=== PATIENT | female | born 1980 | race Caucasian/White ===

== ENCOUNTER → 2016-10-31 | Outpatient (CLI) | payer BC ==
[~2016-10-31] MED LIST: ACET325T96 PO; LORA-741 PO; MULT-506 PO; SERT50TA PO
[2016-10-31 10:10] LABS: PROLACTIN 8.14 ng/mL
== END | disposition home or self-care (01) ==
LOC: C.LAB 06:18
PROVIDERS: ATTEND Obstetrics & Gynecology
DX: N92.5 Other specified irregular menstruation (principal); N92.0 Excessive and frequent menstruation with regular cycle

== ENCOUNTER → 2016-11-21 | Outpatient (CLI) | payer BC ==
[~2016-11-21] MED LIST changes: -ACET325T96 PO; -SERT50TA PO
[2016-11-21 09:41] LABS: PREG INTERNAL NEGATIVE QC NEG CLEAR BACKGROUND; PREG INTERNAL POSITIVE QC POS CONTROL LINE
== END | disposition home or self-care (01) ==
LOC: C.LAB 07:17
PROVIDERS: ATTEND Obstetrics & Gynecology
DX: Z01.818 Encounter for other preprocedural examination (principal)

== ENCOUNTER → 2016-11-27 | Day surgery (SDC) | payer BC ==
[2016-11-20 11:23] VITALS: Ht 149.9 cm; Wt 54.5 kg
--- NOTE | 2016-11-26 11:40 | History and Physical: Surg Cnt ---
History & Physical Date Nov 26, 2016. Chief Complaint heavy vaginal bleeding with clotting History of Present Illness The patient is a 36 year old female with complaints of Past Medical/Surgical History Patient has heavy vaginal bleeding with clotting for over 1 year getting progressively worse. Patient is unable to leave the house for over 4 days a month due to soaking through a pad and a Tampax in under 1 hour. Symptoms have been unresponsive to conservative treatment with oral medications. Risks and benefits of the procedure have been discussed with the patient. Additional History Hepatic Disease: No Endocrine Disorder: No Kidney Disease: No Hypertension: No Heart Disease: No Bleeding Tendencies: No Infectious Diseases: No Allergies Coded Allergies: Penicillins (Verified Allergy, Intermediate, rash, 11/20/16) Latex1 -Allergic Contact Dermititis (Verified Allergy, Mild, RASH, 11/20/16 ) PT REPORTS ITCHING WHEN EXPOSED TO LATEX. Home Medications Scheduled Multivitamin (Multivitamin), 1 TAB PO QAM Scheduled PRN Lorazepam (Ativan), 0.5 MG PO TID PRN for anxiety Physical Examination Skin: warm/dry Eyes: normal inspection, EOMI, sclerae normal ENT: normal ENT inspection, pharynx normal Head: normocephalic, atraumatic Neck: supple, no adenopathy, trachea midline Respiratory/Chest: lungs clear, normal breath sounds, no respiratory distress Cardiovascular: regular rate, rhythm, no edema, no murmur Abdomen / GI: normal bowel sounds, non tender Back: normal inspection Extremities: normal inspection, normal range of motion Neurologic/Psych: no motor/sensory deficits, alert, normal reflexes, oriented x 3 Addiitonal Comments: Transvaginal ultrasound done on 11/04/16 . Thickened endometrial stripe present. Diagnosis Hypermenorrhea Plan of Treatment Dilatation of cervix and curettage of endometrial cavity. Hysteroscopy with endometrial ablation.
[~2016-11-27] VITALS: Ht 149.9 cm; Wt 54.5 kg
[~2016-11-27] MED LIST changes: +ATROPINE SULFATE 0.1 MG/ML 5ML SYR IV PRN; +DEXAMETHASONE SOD INJ 4 MG/ML VIAL ONE; +EpHEDrine SULFATE INJ 50 MG/ML AMP IV PRN; +FENTANYL CITRATE INJ 50 MCG/1 ML 2 ML VIAL IV PRN; +FENTANYL CITRATE INJ 50 MCG/1 ML 2 ML VIAL ONE; +HYDROCODONE/ACETAMOPHEN 5/325MG TAB PO PRN; +IBUPROFEN 600 MG TAB PO PRN; +KETOROLAC TROMETHAMINE 30 MG/ML VIAL IV. PRN; +KETOROLAC TROMETHAMINE 30 MG/ML VIAL ONE; +LACTATED RINGER'S 1000ML 1,000 ML IV SCH; +LIDOCAINE HCL 2% 2 ML VIAL (20MG/ML) ONE; +MIDAZOLAM HCL 1 MG/ML 2ML VIAL ONE; +ONDANSETRON INJ 2 MG/ML 2 ML VIAL IV PRN; +ONDANSETRON INJ 2 MG/ML 2 ML VIAL ONE; +OXYCODONE/ACETAMINOPHEN 5-325 TAB PO PRN; +PROMETHAZINE HCL INJ 6.25 MG in SODIUM CHLORIDE 0.9% 50ML 50 ML IV PRN; +PROPOFOL IV EMULSION 10 MG/ML 20 ML VIAL IV ONE; +SODIUM CHLORIDE 0.9% 1000ML 1,000 ML IV SCH
--- NOTE | 2016-11-27 08:08 | History & Physical Bridge Note ---
H&P Re-Evaluation Bridge Note: I have examined the patient, reviewed the History & Physical and in the interval since the performance of the History & Physical I have noted the following changes of clinical significance: No changes noted
--- NOTE | 2016-11-27 08:54 | [facility] Post Operative Brief Note ---
Immediate Operative Summary Operative Date Nov 27, 2016. Pre-Operative Diagnosis Hypermenorrhea, Dysmenorrhea Post-Operative Diagnosis Same Procedure(s) Performed Dilatation And Curettage, Hysteroscopy, Endometrial Ablation with Novasure Surgeon Dr Rubalcava Sample Driller Surgeon(s) None Estimated Blood Loss 5ml Findings uterus sounded to 8.25cm first degree uterine prolapse Specimens A: Endometrial Currettings Complication(s) None Disposition Recovery Room / PACU
--- NOTE | 2016-11-27 08:56 | Discharge Instructions-SurgCtr ---
Discharge Instructions Date of Service Nov 27, 2016. Visit Reason for Visit: Hypermenorrhea, Dysmenorrhea Discharge Discharge Diagnosis / Problem: uterus sounded to 8.25 cm Discharge Goals Goal(s): Improve function, Therapeutic intervention Activity Recommendations Activity Limitations: as noted below Anesthesia . Post Anesthesia Instructions: If you have had General Anesthesia or IV Sedation: * Do not drive today. * Resume driving when surgeon permits. * Do not make important decisions or sign legal documents today. * Call surgeon for: 1. Temperature elevations greater than 101 degrees F. 2. Uncontrollable pain. 3. Excessive bleeding. 4. Persistent nausea and vomiting. 5. Medication intolerance (nausea, vomiting or rash). * For nausea and vomiting use only clear liquids such as: tea, soda, bouillon until nausea subsides, then gradually increase diet as tolerated. * If you have any concerns or questions, call your surgeon's office. If physician is unavailable and it is an emergency, call 911 or go to the nearest emergency room. . Instructions / Follow-Up Instructions / Follow-Up ACTIVITY RECOMMENDATIONS: * Avoid tampons, douching, hot tubs, pools, and intercourse until bleeding has stopped. * May shower as usual. * No strenuous activity for 24-48 hours. After 24-48 hours, you may do anything you feel like doing (driving and sports are okay). SPECIAL CARE INSTRUCTIONS: Special Diet: * Mild nausea may occur in the immediate post-operative period. * Take clear liquids such as tea, cola or bouillon until all nausea has subsided; you may then resume your normal diet. Special Care: * Light bleeding and vaginal spotting can last from a few days to 3-4 weeks. Call your doctor if bleeding becomes heavier than the heaviest part of your period. * Check your temperature twice a day for one week. If it goes above 100.4 degrees Fahrenheit (38.0 Celsius), notify your doctor. * Call your doctor's office for an appointment for 6 weeks after your surgery. FOLLOW-UP VISIT: Call your doctor's office for an appointment for 6 weeks after your surgery. Diet Recommendations Home Diet: resume previous diet Procedures Procedures Performed: Dilatation And Curettage, Hysteroscopy, Endometrial Ablation with Novasure Pending Studies Studies pending at discharge: no Medical Emergencies . Who to Call and When: Medical Emergencies: If at any time you feel your situation is an emergency, please call 911 immediately. . Non-Emergent Contact Non-Emergency issues call your: Ship Surveyor Call Non-Emergent contact if: temperature is above 100.5 . . "Provider Documentation" section prepared by Musa Rubalcava. .
--- NOTE | 2016-11-27 09:05 | [facility] Operative Report ---
Operative Report Operative Date Nov 27, 2016. Pre-Operative Diagnosis Hypermenorrhea, Dysmenorrhea Post-Operative Diagnosis Same Procedure(s) Performed Dilatation And Curettage, Hysteroscopy, Endometrial Ablation with Novasure Surgeon Dr Rubalcava Oil Pit Attendant Surgeon(s) None Estimated Blood Loss 5ml Findings Hysteroscopic evaluation of the uterine cavity revealed a normal uterus and normal tubal ostia Specimens A: Endometrial Currettings Complication(s) None Disposition Recovery Room / PACU Description of Procedure Stressors but brought to the OR correctly identified by armband conversation patient placed on the OR table. Perineum and vagina were painted with Betadine paint and draped usual sterile fashion catheters used to empty the bladder careful pelvic exam revealed a mid to anteverted uterus no adnexal masses appreciated weighted speculum was placed in posterior vagina and anterior lip cervix rest was single-tooth tenaculum uterus was sounded to 8-1/4 cm cervix was dilated with graduated dilators hysteroscope using normal saline for distention medium was placed into the uterine cavity both tubal ostia were visualized and the length of the cervix was calculated following this thorough and systematic curettage of the entire endometrial cavity was performed this was productive of a moderate amount of normal-appearing tissue and then a NovaSure ablation device was placed in uterine cavity and cervical length was set at 4-1/4 cm the device was opened to 3.5 cm with a integrity test with CO2 was done then the a power was turned on and a power was 77 W and a time 1 minute 51 seconds following a weight of about 60 seconds the NovaSure device was removed hysteroscope was reinserted and uterine cavity we had a nice burn of the entire endometrial cavity photographs were taken and showed to remove patient our procedure well left the OR in good condition. I attest to the content of the Intraoperative Record and any orders documented therein. Any exceptions are noted below.
[2016-11-27 09:29] VITALS: TEMP 36.2
[2016-11-27 09:58] VITALS: BP 128/80; PULSE 63; O2SAT 100
--- NOTE | 2016-11-27 10:01 | Anesthesiology Progress Note ---
Anesthesia Post Op Note Date & Time Nov 27, 2016 at 10:01 Vital Signs Pain Intensity: 6 Vital Signs Past 12 Hours Date Time Temp Pulse Resp B/P (MAP) Pulse Ox O2 Delivery O2 Flow Rate FiO2 11/27/16 09:58 63 18 128/80 (96) 100 Room Air 11/27/16 09:29 36.2 60 20 125/80 (95) 100 Room Air 11/27/16 09:24 36.5 11/27/16 09:22 61 13 100 11/27/16 09:22 61 13 11/27/16 09:21 133/91 (112) 11/27/16 09:17 71 18 128/83 (93) 100 11/27/16 09:17 72 18 11/27/16 09:12 82 11 99 11/27/16 09:12 82 11 11/27/16 09:07 12 11/27/16 09:07 82 12 11/27/16 09:06 116/84 (96) 11/27/16 09:05 Room Air 11/27/16 09:02 83 15 126/79 (97) 100 11/27/16 09:02 81 15 11/27/16 08:58 109/76 (83) 11/27/16 08:57 79 15 11/27/16 08:57 15 11/27/16 08:54 36.4 79 16 109/76 98 Diffusion Mask 5 11/27/16 07:13 36.5 75 16 124/86 (99) 100 Room Air Notes Mental Status: alert / awake / arousable, participated in evaluation Pt Amnestic to Procedure: Yes Nausea / Vomiting: adequately controlled Pain: adequately controlled Airway Patency, RR, SpO2: stable & adequate BP & HR: stable & adequate Hydration State: stable & adequate Anesthetic Complications: no major complications apparent
== END | disposition home or self-care (01) ==
LOC: X.SURG 07:03
PROVIDERS: ATTEND Obstetrics & Gynecology
DX: N92.0 Excessive and frequent menstruation with regular cycle (principal); N94.6 Dysmenorrhea, unspecified

== ENCOUNTER 2017-09-27 21:44 | Emergency (ER) | payer BC ==
[~2017-09-27] VITALS: Ht 149.9 cm; Wt 50.3 kg
[~2017-09-27 21:44] MED LIST changes: -ATROPINE SULFATE 0.1 MG/ML 5ML SYR IV PRN; -DEXAMETHASONE SOD INJ 4 MG/ML VIAL ONE; -EpHEDrine SULFATE INJ 50 MG/ML AMP IV PRN; -FENTANYL CITRATE INJ 50 MCG/1 ML 2 ML VIAL IV PRN; -FENTANYL CITRATE INJ 50 MCG/1 ML 2 ML VIAL ONE; -HYDROCODONE/ACETAMOPHEN 5/325MG TAB PO PRN; -IBUPROFEN 600 MG TAB PO PRN; -KETOROLAC TROMETHAMINE 30 MG/ML VIAL IV. PRN; -KETOROLAC TROMETHAMINE 30 MG/ML VIAL ONE; -LACTATED RINGER'S 1000ML 1,000 ML IV SCH; -LIDOCAINE HCL 2% 2 ML VIAL (20MG/ML) ONE; -MIDAZOLAM HCL 1 MG/ML 2ML VIAL ONE; -ONDANSETRON INJ 2 MG/ML 2 ML VIAL IV PRN; -ONDANSETRON INJ 2 MG/ML 2 ML VIAL ONE; -OXYCODONE/ACETAMINOPHEN 5-325 TAB PO PRN; -PROMETHAZINE HCL INJ 6.25 MG in SODIUM CHLORIDE 0.9% 50ML 50 ML IV PRN; -PROPOFOL IV EMULSION 10 MG/ML 20 ML VIAL IV ONE; -SODIUM CHLORIDE 0.9% 1000ML 1,000 ML IV SCH
[2017-09-27 21:49] VITALS: TEMP 36.7; Ht 149.9 cm; Wt 50.3 kg
[2017-09-27] MEDS ORDERED: SODIUM CHLORIDE 0.9% 1000ML 1,000 ML IV STA (22:05)
[2017-09-27] MEDS ORDERED: LORAZEPAM 2 MG/ML 1 ML VIAL IV STA (22:05)
[2017-09-27 22:16] LABS: BASO % 0.2 %; BASO ABS # 0.02 K/uL (0-0.2); EOS % 0.7 %; EOS ABS # 0.07 K/uL (0-0.5); HEMATOCRIT 40.3 % (37-47); HEMOGLOBIN 14.7 g/dL (12.0-16.0); IG# 0.02 K/uL (0.00-0.02); LYMPH ABS # 3.19 K/uL (1.2-3.4); MEAN CORPUSCULAR HEMOGLOBIN 31.7 pg (25-34); MEAN CORPUSCULAR HGB CONC 36.5 g/dl (32-36); MEAN PLATELET VOLUME 10.4 fL (7.4-10.4); MONO % 6.4 %; MONO ABS # 0.64 K/uL (0.11-0.59); NEUT % 60.5 %; NEUT ABS # 6.03 K/uL (1.4-6.5); PLATELET COUNT 199 K/uL (130-400); RED CELL DISTRIBUTION WIDTH CV 12.8 % (11.5-14.5); RED CELL DISTRIBUTION WIDTH SD 40.4 fL (36.4-46.3); WHITE BLOOD COUNT 9.97 K/uL (4.8-10.8)
--- NOTE | 2017-09-27 22:20 | DIAGNOSTIC IMAGING REPORT ---
CHEST ONE VIEW PORTABLE HISTORY: 36 years-old Female CHEST PAIN acute atypical chest pain COMPARISON: Chest radiographs 02/05/2016 TECHNIQUE: Portable AP view of the chest FINDINGS: Cardiomediastinal and hilar silhouettes are within normal limits. There is no pneumothorax, pleural effusion, focal airspace consolidation or overt pulmonary edema. The bones of the chest appear grossly intact. IMPRESSION: No acute process. The above report was generated using voice recognition software. It may contain grammatical, syntax or spelling errors. Electronically signed by: Babatunde Steve M.D. 09/27/2017 10:19 PM Dictated Date/Time: 09/27/2017 10:18 PM
[2017-09-27] MEDS ORDERED: BSP/10 PO (22:36)
[2017-09-27] MEDS ORDERED: ATV5X PO (22:36)
[2017-09-27 22:44] LABS: ALBUMIN 4.4 gm/dl (3.4-5.0); CALCIUM 9.4 mg/dl (8.5-10.1); CREATININE 0.94 mg/dl (0.60-1.20); POTASSIUM 2.9 mmol/L (3.5-5.1)
[2017-09-27 22:45] VITALS: O2SAT 100
[2017-09-27] MEDS ORDERED: POTASSIUM CHLORIDE 10 MEQ TABCR PO STA (22:52)
[2017-09-27 22:55] LABS: TOTAL PROTEIN 8.4 gm/dl (6.4-8.2)
[2017-09-27] MEDS ORDERED: MEDMARIJ INH (22:55)
--- NOTE | 2017-09-27 23:10 | EMERGENCY ROOM VISIT NOTE ---
History First contact with patient: 21:49 Chief Complaint: OTHER COMPLAINT Stated Complaint: IRREGULAR HEARTBEAT, SHAKING History of Present Illness The patient is a 36 year old female who presents to the Emergency Room with complaints of feeling shaky coughing and anxious after taking a bigger hit the normal off her medical marijuana. Patient states she takes normally 2-3 hits off her medical marijuana a day. Patient states she took a bigger had a normal today and now feels anxious and shaky. Patient denies chest pain, dyspnea, fever, chills, productive cough, abdominal pain, other drug use. Patient is requesting something to drink. Review of Systems An 10 system review of systems was completed with positives and pertinent negatives listed in the HPI. Past Medical/Surgical History Generalized anxiety, depression, PTSD Family History Heart disease Stroke Social History Smoking Status: Never Smoker Alcohol Use: none Drug Use: marijuana Marital Status: Occupation Status: employed Current/Historical Medications Scheduled Buspirone HCl (Buspirone HCl), 10 MG PO BID Lorazepam (Lorazepam), 0.5 MG PO NEEDED Marijuana, Home Medication (Marijuana, Home Medication), 1 DOSE INH DIRECTED Physical Exam Vital Signs Date Time Temp Pulse Resp B/P (MAP) Pulse Ox O2 Delivery O2 Flow Rate FiO2 09/27/17 22:45 100 Room Air 09/27/17 22:13 100 Room Air 09/27/17 21:53 109 09/27/17 21:49 36.7 118 14 162/95 100 Room Air Physical Exam VITALS: Vitals are noted on the nurse's note and reviewed by myself. Vital signs mildly tachycardic. GENERAL: Anxious appearing female begging for something to drink, nondiaphoretic , well-developed well-nourished. SKIN: The skin was without rashes, erythema, edema, or bruising. There is no tenting of the skin. Capillary reflex less than 2 seconds. HEAD: Normocephalic atraumatic. EARS: External auditory canals clear, tympanic membranes pearly bermudez without erythema or effusion bilaterally. EYES: Pupils equal round and reactive to light and accommodation. Conjunctivae without injection, sclerae without icterus. Extraocular movements intact. NOSE: Patent, turbinates without inflammation or discharge. MOUTH: Mucous membranes moist. Pharynx without erythema or exudate. Uvula midline. Airway patent. Tongue does not deviate. NECK: Supple without nuchal rigidity. No lymphadenopathy. No thyromegaly. Cervical spine is nontender. No JVD. HEART: Regular rate and rhythm without murmurs gallops or rubs. LUNGS: Clear to auscultation bilaterally without wheezes, rales or rhonchi. No retractions or accessory muscle use. ABDOMEN: Positive bowel sounds x 4. Normal tympanic percussion. Soft, nontender, without masses or organomegaly. Escobar sign negative. No guarding or rebound tenderness. No CVA tenderness MUSCULOSKELETAL: No muscle atrophy, erythema, or edema noted. NEURO: Patient was alert and oriented to person place and time. Normal sensation to light and sharp touch. No focal neurological deficits. Medical Decision & Procedures Laboratory Results 09/27/17 21:50 Red Blood Count 4.63, Mean Corpuscular Volume 87.0, Mean Corpuscular Hemoglobin 31.7, Mean Corpuscular Hemoglobin Concent 36.5, Mean Platelet Volume 10.4, Neutrophils (%) (Auto) 60.5, Lymphocytes (%) (Auto) 32.0, Monocytes (%) (Auto) 6.4, Eosinophils (%) (Auto) 0.7, Basophils (%) (Auto) 0.2, Neutrophils # (Auto) 6.03, Lymphocytes # (Auto) 3.19, Monocytes # (Auto) 0.64, Eosinophils # (Auto) 0.07, Basophils # (Auto) 0.02 09/27/17 21:50 Test 09/27/17 21:50 White Blood Count 9.97 K/uL (4.8-10.8) Red Blood Count 4.63 M/uL (4.2-5.4) Hemoglobin 14.7 g/dL (12.0-16.0) Hematocrit 40.3 % (37-47) Mean Corpuscular Volume 87.0 fL (80-100) Mean Corpuscular Hemoglobin 31.7 pg (25-34) Mean Corpuscular Hemoglobin Concent 36.5 g/dl (32-36) Platelet Count 199 K/uL (130-400) Mean Platelet Volume 10.4 fL (7.4-10.4) Neutrophils (%) (Auto) 60.5 % Lymphocytes (%) (Auto) 32.0 % Monocytes (%) (Auto) 6.4 % Eosinophils (%) (Auto) 0.7 % Basophils (%) (Auto) 0.2 % Neutrophils # (Auto) 6.03 K/uL (1.4-6.5) Lymphocytes # (Auto) 3.19 K/uL (1.2-3.4) Monocytes # (Auto) 0.64 K/uL (0.11-0.59) Eosinophils # (Auto) 0.07 K/uL (0-0.5) Basophils # (Auto) 0.02 K/uL (0-0.2) RDW Standard Deviation 40.4 fL (36.4-46.3) RDW Coefficient of Variation 12.8 % (11.5-14.5) Immature Granulocyte % (Auto) 0.2 % Immature Granulocyte # (Auto) 0.02 K/uL (0.00-0.02) Anion Gap 12.0 mmol/L (3-11) Est Creatinine Clear Calc Drug Dose 55.9 ml/min Estimated GFR () 89.8 Estimated GFR (Non- 77.5 BUN/Creatinine Ratio 20.2 (10-20) Calcium Level 9.4 mg/dl (8.5-10.1) Magnesium Level 1.9 mg/dl (1.8-2.4) Total Bilirubin 0.5 mg/dl (0.2-1) Direct Bilirubin 0.2 mg/dl (0-0.2) Aspartate Amino Transf (AST/SGOT) 20 U/L (15-37) Alanine Aminotransferase (ALT/SGPT) 23 U/L (12-78) Alkaline Phosphatase 76 U/L (45-117) Total Protein 8.4 gm/dl (6.4-8.2) Albumin 4.4 gm/dl (3.4-5.0) Thyroid Stimulating Hormone (TSH) 3.180 uIu/ml (0.300-4.500) Human Chorionic Gonadotropin, Qual NEG (NEG) Medications Administered Medications (Trade) Dose Ordered Sig/Geovanny Route Start Time Stop Time Status Last Admin Dose Admin Lorazepam (Ativan Inj) 1 mg NOW STAT IV 09/27/17 22:05 09/27/17 22:06 DC 09/27/17 22:27 1 MG Sodium Chloride 1,000 ml @ 999 mls/hr Q1H1M STAT IV 09/27/17 22:05 09/27/17 23:05 DC 09/27/17 22:27 999 MLS/HR ED Course Prior records/ancillary studies reviewed and summarized above. Nursing notes reviewed. Additional history obtained from family The patient's history was concerning for feeling anxious nervous and tingling after inhaling more than normal amounts of marijuana Differential diagnosis: Etiologies such as side effect of marijuana use, metabolic, infection, hypo/ hyperglycemia, electrolyte abnormalities, cardiac sources, intracerebral event, toxicologic, neurologic, as well as others were entertained. Physical examination: As above. ER treatment provided: IV Lock IV fluids, Ativan On reassessment the patient felt better. Diagnostics interpretation by me: ECG: Normal sinus, normal intervals, no acute ST-T wave changes. Impression normal sinus rhythm interpreted by myself The labs revealed hypokalemia and this is replaced orally. Negative hCG Imaging studies: Chest x-ray with no acute consolidation, pneumothorax free of my interpretation Exam and history seem consistent with anxiety side effect of marijuana and low potassium. Patient felt better after being medicated as above. Patient states she has been using medical marijuana for the past few months for her anxiety. Patient was well-appearing. She was neurovascularly neurologically intact. She was anxious appearing but felt better after the Ativan. She is advised to rest, decrease stress, regular exercise and to take her medications as directed. She is advised follow-up with family care in a few days or here in the ER sooner for chest pain, difficulty breathing, worsening signs or symptoms or as needed. By the evaluation outlined above emergent etiologies such as infection, cardiac sources, intracerebral event, neurologic, abnormalities blood glucose, metabolic, as well as others were deemed relatively unlikely. The pt informed about the findings as listed above. All questions were answered and pleased with the treatment. Return instructions were outlined and the patient was discharged in stable condition. Referral: The patient was referred back to primary care physician for follow-up in 2 to 3 days for a recheck of the current condition. Case reviewed with my attending The chart was completed utilizing [employer] voice recognition software. Grammatical errors, random word insertions, pronoun errors, and incomplete sentences are an occassional consequence of this system due to software limitations, ambient noise, and hardware issues. Any formal questions or concerns about the content, text, or information contained within the body of this dictation should be directly addressed to the physician bilingual medical assistant for clarification. Medical Decision as above Medication Reconcilliation Current Medication List: was personally reviewed by me Blood Pressure Screening Patient's blood pressure: Elevated blood pressure Blood pressure disposition: Elevated BP felt to be situational Impression Primary Impression: Anxiety Additional Impressions: Marijuana side effect Hypokalemia Departure Information Dispostion Home / Self-Care Condition GOOD Referrals Tee Lundberg M.D. (PCP) Patient Instructions My [facility] Additional Instructions DO NOT drive, drink alcohol, operate machinery, or perform dangerous activities today. You were given medications in the ER that can affect your ability to safely function or operate a vehicle. Decrease stress. Recommend yoga and/or Pilates for stress relief. Recommend not over inhaling your medical marijuana. Rest and drink plenty of fluids as tolerated. Continue current medications. Return to the ER immediately for worsening or persistent shakiness, vomiting, fevers, chest pains, difficulty breathing, worsening of your condition, or as needed. Follow up with your primary physician in 1-2 days for a recheck of your current condition. Problem Qualifiers
[2017-09-27 23:18] VITALS: BP 128/81; PULSE 87; O2SAT 98
== END 2017-09-27 23:18 | disposition home or self-care (01) ==
LOC: C.EDB 21:45 → C.EDA 23:18
DX: T40.7X5A Adverse effect of cannabis (derivatives), initial encounter (principal); F41.9 Anxiety disorder, unspecified; E87.6 Hypokalemia; X58.XXXA Exposure to other specified factors, initial encounter

== ENCOUNTER 2017-10-13 15:46 | Emergency (ER) | payer BC ==
[~2017-10-13] VITALS: Ht 149.9 cm; Wt 48.0 kg
[~2017-10-13 15:46] MED LIST changes: +ATV5X PO; +BSP/10 PO; -LORA-741 PO; +MEDMARIJ INH; -MULT-506 PO
[2017-10-13 15:58] VITALS: TEMP 36.7; Ht 149.9 cm; Wt 48.0 kg
[2017-10-13] MEDS ORDERED: ONDANSETRON 4MG OD TAB PO STA (16:17)
[2017-10-13] MEDS ORDERED: LORAZEPAM 1 MG TAB SL STA (16:17)
--- NOTE | 2017-10-13 16:25 | EMERGENCY ROOM VISIT NOTE ---
History Report prepared by Sam: Rajwinder Brar Under the Supervision of: Dr. Gregg Parks M.D. First contact with patient: 16:02 Chief Complaint: ANXIETY Stated Complaint: PANIC ATTACKS IN RAPID SUCCESSIOIN History of Present Illness The patient is a 36 year old female who presents to the Emergency Room with complaints of anxiety attacks over the last 30 minutes. Her family states that the patient was having anxiety attacks in rapid succession. Per family, the patient just returned from a vacation in [place] today. Per family, the patient's anxiety seems to be worse whenever she is away from home. The patient reports that she had 3 glasses of wine yesterday, but that she is not a heavy drinker. She reports having generalized body tingling, but denies having numbness, vomiting, and fevers. The patient states that other than her anxiety, she has no medical problems. She reports that she feels suicidal when her anxiety is this bad. The patient states that she was here September 27 for anxiety attacks which occurred because she used too much medical marijuana. The patient states that she has not had medical marijuana since September 27. She states that she has never been admitted to the hospital for her anxiety. Source of History: patient, family Onset: over the last 30 minutes Position: other (generalized ) Quality: other (anxiety attacks) Modifying Factors (Worsening): other (being away from home ) Associated Symptoms: No fevers, No vomiting, No numbness Note: additional symptom: generalized body tingling Review of Systems See HPI for pertinent positives & negatives. A total of 10 systems reviewed and were otherwise negative. Past Medical & Surgical Medical Problems: (1) Anxiety Family History Heart disease Stroke Social History Smoking Status: Never Smoker Alcohol Use: occasionally Drug Use: marijuana (medical ) Marital Status: Occupation Status: employed Current/Historical Medications Scheduled Buspirone HCl (Buspirone HCl), 10 MG PO BID Lorazepam (Lorazepam), 0.5 MG PO NEEDED Marijuana, Home Medication (Marijuana, Home Medication), 1 DOSE INH DIRECTED Sertraline HCl (Sertraline HCl), 50 MG PO DAILY Allergies Coded Allergies: Penicillins (Verified Allergy, Intermediate, rash, 10/13/17) Latex1 -Allergic Contact Dermititis (Verified Allergy, Mild, RASH, 10/13/17 ) PT REPORTS ITCHING WHEN EXPOSED TO LATEX. Physical Exam Vital Signs Date Time Temp Pulse Resp B/P (MAP) Pulse Ox O2 Delivery O2 Flow Rate FiO2 10/13/17 18:02 68 18 123/87 98 10/13/17 16:26 85 10/13/17 15:58 36.7 98 20 161/104 95 Room Air Physical Exam GENERAL: Awake, alert, tearful, in no acute distress HENT: Normocephalic, atraumatic. Oropharynx unremarkable. EYES: Normal conjunctiva. Sclera non-icteric. NECK: Supple. No nuchal rigidity. FROM. No JVD. RESPIRATORY: Clear to auscultation. CARDIAC: Regular rate, normal rhythm. Extremities warm and well perfused. Pulses equal. ABDOMEN: Soft, non-distended. No tenderness to palpation. No rebound or guarding. No masses. RECTAL: Deferred. MUSCULOSKELETAL: Chest examination reveals no tenderness. The back is symmetrical on inspection without obvious abnormality. There is no CVA tenderness to palpation. No joint edema. LOWER EXTREMITIES: Calves are equal size bilaterally and non-tender. No edema. No discoloration. NEURO: Normal sensorium. No sensory or motor deficits noted. SKIN: No rash or jaundice noted. PSYCH: Admits to suicidal ideation. Medical Decision & Procedures Laboratory Results 10/13/17 16:40 Red Blood Count 4.31, Mean Corpuscular Volume 86.8, Mean Corpuscular Hemoglobin 31.6, Mean Corpuscular Hemoglobin Concent 36.4, Mean Platelet Volume 9.7, Neutrophils (%) (Auto) 60.7, Lymphocytes (%) (Auto) 26.3, Monocytes (%) (Auto) 11.4, Eosinophils (%) (Auto) 0.8, Basophils (%) (Auto) 0.4, Neutrophils # (Auto ) 3.05, Lymphocytes # (Auto) 1.32, Monocytes # (Auto) 0.57, Eosinophils # (Auto ) 0.04, Basophils # (Auto) 0.02 10/13/17 16:40 Test 10/13/17 16:31 10/13/17 16:40 Urine Color YELLOW Urine Appearance TURBID (CLEAR) Urine pH 7.5 (4.5-7.5) Urine Specific [place] 1.020 (1.000-1.030) Urine Protein NEG (NEG) Urine Glucose (UA) NEG (NEG) Urine Ketones NEG (NEG) Urine Occult Blood NEG (NEG) Urine Nitrite NEG (NEG) Urine Bilirubin NEG (NEG) Urine Urobilinogen NEG (NEG) Urine Leukocyte Esterase TRACE (NEG) Urine WBC (Auto) 1-5 /hpf (0-5) Urine RBC (Auto) 0-4 /hpf (0-4) Urine Hyaline Casts (Auto) 0 /lpf (0-5) Urine Epithelial Cells (Auto) >30 /lpf (0-5) Urine Bacteria (Auto) NEG (NEG) Urine Test NEG (NEG) Urine Opiates Screen NEG (NEG) Urine Methadone, Qualitative NEG (NEG) Urine Barbiturates NEG (NEG) Urine Phencyclidine (PCP) Level NEG (NEG) Ur Amphetamine/Methamphetamine NEG (NEG) MDMA (Ecstasy) Screen NEG (NEG) Urine Benzodiazepines Screen NEG (NEG) Urine Cocaine Metabolite NEG (NEG) Urine Marijuana (THC) NEG (NEG) White Blood Count 5.02 K/uL (4.8-10.8) Red Blood Count 4.31 M/uL (4.2-5.4) Hemoglobin 13.6 g/dL (12.0-16.0) Hematocrit 37.4 % (37-47) Mean Corpuscular Volume 86.8 fL (80-100) Mean Corpuscular Hemoglobin 31.6 pg (25-34) Mean Corpuscular Hemoglobin Concent 36.4 g/dl (32-36) Platelet Count 181 K/uL (130-400) Mean Platelet Volume 9.7 fL (7.4-10.4) Neutrophils (%) (Auto) 60.7 % Lymphocytes (%) (Auto) 26.3 % Monocytes (%) (Auto) 11.4 % Eosinophils (%) (Auto) 0.8 % Basophils (%) (Auto) 0.4 % Neutrophils # (Auto) 3.05 K/uL (1.4-6.5) Lymphocytes # (Auto) 1.32 K/uL (1.2-3.4) Monocytes # (Auto) 0.57 K/uL (0.11-0.59) Eosinophils # (Auto) 0.04 K/uL (0-0.5) Basophils # (Auto) 0.02 K/uL (0-0.2) RDW Standard Deviation 40.4 fL (36.4-46.3) RDW Coefficient of Variation 12.7 % (11.5-14.5) Immature Granulocyte % (Auto) 0.4 % Immature Granulocyte # (Auto) 0.02 K/uL (0.00-0.02) Anion Gap 5.0 mmol/L (3-11) Est Creatinine Clear Calc Drug Dose 90.6 ml/min Estimated GFR () 136.5 Estimated GFR (Non- 117.8 BUN/Creatinine Ratio 26.6 (10-20) Calcium Level 8.7 mg/dl (8.5-10.1) Total Bilirubin 0.7 mg/dl (0.2-1) Direct Bilirubin 0.2 mg/dl (0-0.2) Aspartate Amino Transf (AST/SGOT) 16 U/L (15-37) Alanine Aminotransferase (ALT/SGPT) 22 U/L (12-78) Alkaline Phosphatase 68 U/L (45-117) Total Protein 7.2 gm/dl (6.4-8.2) Albumin 4.0 gm/dl (3.4-5.0) Thyroid Stimulating Hormone (TSH) 0.723 uIu/ml (0.300-4.500) Ethyl Alcohol mg/dL < 3.0 mg/dl (0-3) Labs reviewed by ED physician. Medications Administered Medications (Trade) Dose Ordered Sig/Geovanny Route Start Time Stop Time Status Last Admin Dose Admin Lorazepam (Ativan Tab) 1 mg NOW STAT SL 10/13/17 16:17 10/13/17 16:19 DC 10/13/17 16:30 1 MG Ondansetron HCl (Zofran Odt) 4 mg ONE STAT PO 10/13/17 16:17 10/13/17 16:19 DC 10/13/17 16:31 4 MG Potassium Chloride (Klor-Con Tab) 40 meq NOW STAT PO 10/13/17 17:29 10/13/17 17:30 DC 10/13/17 17:58 40 MEQ ED Course 1611: Past medical records reviewed. The patient was evaluated in room A2. A complete history and physical examination was performed. 1617: Ordered Zofran Odt 4 mg PO, Ativan Tab 1 mg SL. 1706: I checked on the patient. Case management was in the room talking with the patient. 1715: I spoke with case management regarding the patient. Per case management, the patient has a support system including her . Per case management, the patient and her both believe that the patient would be okay outside of a hospital setting. Case management offered admission and the patient would not like to go through with it. 1729: Ordered Potassium Chloride 40 meq PO. 1750: Upon reexamination the patient is resting. I discussed results and treatment plan with the patient. She verbalizes agreement and understanding. The patient is ready for discharge. Medical Decision Differential diagnosis: Etiologies such as mood disorder, infection, hypoglycemia, electrolyte abnormalities, cardiac sources, intracerebral event, toxicologic, neurologic, as well as others were entertained. This is a 36-year-old female who presents emergency department complaining of panic attacks that are becoming in rapid succession. The patient has recently been changing around her medications recently started a new medication approximately 3 weeks ago. She has not used marijuana since her last visit to the emergency department. She did go to way to [place] and her relates that anytime the patient goes away she has a large amount of anxiety. She was given Ativan here in the emergency department with much improvement in her symptoms. I did have case management speak with the patient the patient denies being suicidal homicidal at this point and. Both she and her feel they can be safely discharged I encouraged close follow-up with her psychiatrist. Medication Reconcilliation Current Medication List: was personally reviewed by me Blood Pressure Screening Patient's blood pressure: Elevated blood pressure Blood pressure disposition: Referred to PCP Impression Primary Impression: Anxiety Scribe Attestation The scribe's documentation has been prepared under my direction and personally reviewed by me in its entirety. I confirm that the note above accurately reflects all work, treatment, procedures, and medical decision making performed by me. Departure Information Dispostion Home / Self-Care Referrals Tee Lundberg M.D. (PCP) Forms HOME CARE DOCUMENTATION FORM, IMPORTANT VISIT INFORMATION Patient Instructions Anxiety Body Response, Anxiety Disorder Tx Meds, Anxiety Disorder Tx W Therapy, Lorazepam tablets, My [facility] Additional Instructions Return if symptoms worsen Follow up with Jennifer Perry You received narcotic or benzodiazepene medication while in the emergency room today. This is an addictive medication that may cause drowziness as well as constipation. Do not drive, operate heavy machinery, or drink alcohol under the influence of this medication. You have been examined and treated today on an emergency basis only. This is not a substitute for, or an effort to provide, complete comprehensive medical care. It is impossible to recognize and treat all injuries or illnesses in a single emergency department visit. It is therefore important that you follow up closely with Dr Lundberg. Call as soon as possible for an appointment. Thank you for your time and consideration. I look forward to speaking with you again soon. Please don't hesitate to call us if you have any questions.
[2017-10-13] MEDS ORDERED: ZLF/50 PO (16:34)
[2017-10-13 16:56] LABS: BASO % 0.4 %; BASO ABS # 0.02 K/uL (0-0.2); EOS % 0.8 %; EOS ABS # 0.04 K/uL (0-0.5); HEMATOCRIT 37.4 % (37-47); HEMOGLOBIN 13.6 g/dL (12.0-16.0); IG# 0.02 K/uL (0.00-0.02); LYMPH % 26.3 %; LYMPH ABS # 1.32 K/uL (1.2-3.4); MEAN CELL VOLUME 86.8 fL (80-100); MEAN CORPUSCULAR HEMOGLOBIN 31.6 pg (25-34); MEAN CORPUSCULAR HGB CONC 36.4 g/dl (32-36); MEAN PLATELET VOLUME 9.7 fL (7.4-10.4); MONO % 11.4 %; MONO ABS # 0.57 K/uL (0.11-0.59); NEUT % 60.7 %; NEUT ABS # 3.05 K/uL (1.4-6.5); PLATELET COUNT 181 K/uL (130-400); RED CELL DISTRIBUTION WIDTH CV 12.7 % (11.5-14.5); RED CELL DISTRIBUTION WIDTH SD 40.4 fL (36.4-46.3); WHITE BLOOD COUNT 5.02 K/uL (4.8-10.8)
[2017-10-13 17:27] LABS: CALCIUM 8.7 mg/dl (8.5-10.1); CREATININE 0.58 mg/dl (0.60-1.20); POTASSIUM 3.4 mmol/L (3.5-5.1); TOTAL PROTEIN 7.2 gm/dl (6.4-8.2)
[2017-10-13] MEDS ORDERED: POTASSIUM CHLORIDE 20 MEQ TABCR PO STA (17:29)
[2017-10-13 18:02] VITALS: BP 123/87; PULSE 68; O2SAT 98
== END 2017-10-13 18:03 | disposition home or self-care (01) ==
LOC: C.EDB 15:48 → C.EDA 18:03
DX: F41.9 Anxiety disorder, unspecified (principal); F41.0 Panic disorder [episodic paroxysmal anxiety]; Z79.899 Other long term (current) drug therapy

== ENCOUNTER 2018-09-01 10:48 | Inpatient (IN) ==
[2018-09-01 11:41] LABS: Basophils # (auto) 0.02 K/uL (0-0.2); Basophils % (auto) 0.3 %; Eosinophils # (auto) 0.02 K/uL (0-0.5); Eosinophils % (auto) 0.3 %; Hematocrit (blood only) 41.8 % (37-47); Hemoglobin 15.4 g/dL (12.0-16.0); Immature Granulocytes # (auto) 0.02 K/uL (0.00-0.02); Immature Granulocytes % (auto) 0.3 %; Lymphocytes # (auto) 1.53 K/uL (1.2-3.4); Lymphocytes % (auto) 22.9 %; Mean Corpuscular Hgb Conc 36.8 g/dL (32-36); Mean Corpuscular Volume 87.3 fL (80-100); Mean Platelet Volume 9.8 fL (7.4-10.4); Monocytes # (auto) 0.53 K/uL (0.11-0.59); Monocytes % (auto) 7.9 %; Neutrophils # (auto) 4.57 K/uL (1.4-6.5); Neutrophils % (auto) 68.3 %; Platelet Count 220 K/uL (130-400); RDW Coefficient of Variation 12.8 % (11.5-14.5); RDW Standard Deviation 41.2 fL (36.4-46.3); Red Blood Count 4.79 M/uL (4.2-5.4); White Blood Count 6.69 K/uL (4.8-10.8)
[2018-09-01 12:04] LABS: Albumin Level 4.6 gm/dl (3.4-5.0); Calcium 9.6 mg/dl (8.5-10.1); Creatinine Clr Calc Pharmacy 76.5 ml/min; Est GFR (African American) 128.6; Potassium 4.1 mmol/L (3.5-5.1)
[2018-09-01 12:12] LABS: Appearance Urine Cloudy (Clear); Bacteria Urine Automated Negative (Negative); Bilirubin Urine Negative (Negative); Blood Urine Negative (Negative); Color Urine Yellow; Epithelial Cell Urine Auto >30 /lpf (0-5); Glucose Urine UA Negative (Negative); Leukocyte Esterase Urine Negative (Negative); Nitrite Urine Negative (Negative); Protein Urine Negative (Negative); RBC Urine Automated 0-4 /hpf (0-4); Specific Gravity Urine 1.025 (1.000-1.030); Urobilinogen Urine Negative (Negative)
[2018-09-01 12:13] LABS: Acetaminophen < 2 ug/ml (10-30); Albumin Globulin Ratio 1.4 (0.9-2); Bilirubin,Total 0.6 mg/dl (0.2-1); Globulin 3.4 gm/dl (2.5-4.0)
[2018-09-01 12:14] LABS: Salicylate < 1.7 mg/dl (2.8-20)
[2018-09-01 12:19] LABS: Ketones Urine 3+ (Negative)
[2018-09-01 12:50] LABS: Amphetamines+Metham, Urine Neg (Neg); Barbiturates, Urine Neg (Neg); Benzodiazepine, Urine Neg (Neg); Cocaine, Urine Neg (Neg); MDMA (Ecstacy), Urine Neg (Neg); Methadone, Urine Neg (Neg); Opiate, Urine Neg (Neg); Phencyclidine, Urine Neg (Neg)
--- NOTE | 2018-09-01 16:00 | Emergency Department Note ---
Entered by Anjana Blair acting as a scribe for Marvin Coto History of Present Illness General Chief complaint: Mental Health Evaluation Stated complaint: CPTSD BIPOLAR Time Seen by Provider: 09/01/18 10:50 Source: patient History of Present Illness Onset (ago): day(s) (this morning) Location: head Pain Consistency: + other (worsening) Quality: + other (mental health) Relieved By: + medication (Lorazepam) Associated symptoms: + denies other symptoms (auditory hallucinations) and + other (depressed, crying uncontrollably, feeling regretful, goose bumps) The patient is a 37 year old female who presents to the Emergency Room for a mental health evaluation. The patient states that she was here yesterday because she was hearing voices and was agitated. She states that she went home because she didnt want to be inpatient at the time. She states that last night she didnt sleep well like usual, but her symptoms resolved. She reports that this morning she felt like her symptoms were starting again so she took a Lorazepam. She states that she has also been feeling depressed. She reports that she has been crying uncontrollably, feels regretful, and has goose bumps all over. The patient denies auditory hallucinations now, taking any extras of her medications, use of alcohol, and use of drugs since leaving yesterday. Home Medications Home Medications Medication Instructions Recorded Confirmed Type MARIJUANA, HOME MEDICATION 1 dose INHALATION DIRECTED #0 09/27/17 09/01/18 History lorazepam 1 mg PO DAILY PRN #0 10/22/17 09/01/18 History quetiapine 25 mg PO DAILY #0 tab 11/01/17 09/01/18 History quetiapine 50 mg PO DAILY #0 tab 11/01/17 09/01/18 History hydroxyzine HCl 10 mg PO BID PRN 09/01/18 09/01/18 History lamotrigine [Lamictal] 25 mg PO BID 09/01/18 09/01/18 History venlafaxine [Effexor XR] 150 mg PO DAILY 09/01/18 09/01/18 History Allergies Allergy/AdvReac Type Severity Reaction Status Date / Time Penicillins Allergy Intermediate rash Verified 09/01/18 11:28 latex Allergy Mild RASH Verified 09/01/18 11:28 Past Med/Surg History Medical History Auditory hallucination (Acute) Post traumatic stress disorder (Acute) Anxiety (Chronic) Palpitations (Acute) Paresthesia (Acute) Laceration of right elbow without complication (Acute) Chest pain (Acute) Bipolar disorder Anxiety (Chronic) Manic depressive disorder (Chronic) Family History Other No significant family history Social History Preferred Language: Maltese marital status: Current Living Situation: Family Feels Safe at Home: Yes Smoking Status: Unknown if ever smoked Review of Systems See HPI for pertinent positives & negatives. and A total of 10 systems reviewed and were otherwise negative Physical Exam Vital Signs Vital Signs - 24 hr 09/01/18 10:52 09/01/18 14:53 Temperature 37.0 C 36.7 C Temperature Source Oral Oral Sepsis Recent Fever Within 48 Hours No Sepsis Action Taken by Nursing No Action Required Pulse Rate 89 Pulse Rate [Right Finger] 101 H Pulse Rhythm Regular Pulse Rhythm [Right Finger] Regular Pulse Strength Normal Pulse Strength [Right Finger] Normal Respiratory Rate 20 18 Respiratory Effort / Characteristics Non-Labored Non-Labored Respiratory Depth Normal Normal Respiratory Pattern Regular Blood Pressure 144/104 H Blood Pressure [Left Arm] 135/78 Blood Pressure Mean 117 Blood Pressure Mean [Left Arm] 97 Blood Pressure Position Sitting Blood Pressure Position [Left Arm] Lying Pulse Oximetry 99 98 Oxygen Delivery Method Room Air Physical Exam GENERAL: She is oriented to person, place, and time. She appears well-developed and well-nourished. She does not appear distressed. HENT: Exam performed. -Head: Normocephalic and atraumatic. -Right Ear: External ear normal. No mastoid tenderness. -Left Ear: External ear normal. No mastoid tenderness. -Mouth/Throat: The oropharynx is clear and moist. No trismus in the jaw. No dental abscesses or uvula swelling. No oropharyngeal exudate or tonsillar abscesses. EYES: Conjunctivae and EOM are normal. Pupils are equal, round, and reactive to light. Right eye exhibits no discharge. Left eye exhibits no discharge. No scleral icterus. NECK: Normal range of motion. Neck supple. No JVD present. No spinous process tenderness present. No carotid bruit present. No rigidity. No tracheal deviation and normal range of motion present. No Brudzinski's sign and no Kernig's sign noted. CV: Normal rate, regular rhythm, normal heart sounds and intact distal pulses. There is no peripheral edema. Palpable radial pulses bue. PULM/CHEST: Effort normal and breath sounds normal. No respiratory distress. No stridor. She has no wheezes. She has no rales. -Chest Wall: She exhibits no tenderness. ABD: The abdomen is soft. Bowel sounds are normal. She has no distension. No mass is present. There is no tenderness. There is no rebound, no guarding, no Escobar's sign and no tenderness at McBurney's point. Rovsig negative MUSC/SKEL: Normal range of motion. There is no peripheral edema, tenderness or deformity. LYMPH: No cervical adenopathy. NEURO: She is alert and oriented to person, place, and time. She has normal strength. No cranial nerve deficit or sensory deficit. Coordination and gait normal. GCS eye subscore is 4. GCS verbal subscore is 5. GCS motor subscore is 6. Cerebellar tests wnl. SKIN: Skin is warm and dry. She is not diaphoretic. PSYCH: She has a depressed mood and affect. Behavior is normal. Judgment and thought content normal. Course 1102: The patient was evaluated in room A5, and a complete history and physical examination were performed. Patient was seen and evaluated by me in the emergency department yesterday. Was recommended to her by me as well as psychiatric case fitter that she should be admitted for inpatient psychiatric treatment. Her and the family declined. 1554: The patient's vital signs were stable. The patient is medically cleared at this time and accepted to [address] [place] [address]. Medical Decision Making Medical Records Attestation: I reviewed the patient's medical records. Home Medications Current Medication List: was personally reviewed by me Laboratory Data Attestation: I reviewed the patient's lab results. Result diagrams: 09/01/18 11:26 09/01/18 11:26 Lab Results 09/01/18 09/01/18 09/01/18 Range/Units 11:26 11:26 11:26 WBC 6.69 (4.8-10.8) K/uL RBC 4.79 (4.2-5.4) M/uL Hgb 15.4 (12.0-16.0) g/dL Hct 41.8 (37-47) % MCV 87.3 (80-100) fL MCH 32.2 (25-34) pg MCHC 36.8 H (32-36) g/dL RDW Std Deviation 41.2 (36.4-46.3) fL RDW Coeff of Mandeep 12.8 (11.5-14.5) % Plt Count 220 (130-400) K/uL MPV 9.8 (7.4-10.4) fL Immature Gran % (Auto) 0.3 % Neut % (Auto) 68.3 % Lymph % (Auto) 22.9 % [place] % (Auto) 7.9 % Eos % (Auto) 0.3 % Baso % (Auto) 0.3 % Immature Gran # (Auto) 0.02 (0.00-0.02) K/uL Neut # (Auto) 4.57 (1.4-6.5) K/uL Lymph # (Auto) 1.53 (1.2-3.4) K/uL [place] # (Auto) 0.53 (0.11-0.59) K/uL Eos # (Auto) 0.02 (0-0.5) K/uL Baso # (Auto) 0.02 (0-0.2) K/uL Sodium 139 (136-145) mmol/L Potassium 4.1 D (3.5-5.1) mmol/L Chloride 107 (98-107) mmol/L Carbon Dioxide 26 (21-32) mmol/L Anion Gap 6.0 (3-11) BUN 15 (7-18) mg/dl Creatinine 0.68 (0.6-1.2) mg/dl Est Cr Clr Drug Dosing 76.5 ml/min Est GFR ( Amer) 128.6 Est GFR (Non-Af Amer) 111.0 BUN/Creatinine Ratio 22.0 H (10-20) Glucose 83 (70-99) mg/dl Calcium 9.6 (8.5-10.1) mg/dl Total Bilirubin 0.6 (0.2-1) mg/dl AST 20 (15-37) U/L ALT 29 (12-78) U/L Alkaline Phosphatase 70 (45-117) U/L Total Protein 8.0 (6.4-8.2) gm/dl Albumin 4.6 (3.4-5.0) gm/dl Globulin 3.4 (2.5-4.0) gm/dl Albumin/Globulin Ratio 1.4 (0.9-2) TSH 0.893 (0.300-4.500) uIu/ml Urine Color Urine Appearance (Clear) Urine pH (4.5-7.5) Ur Specific [place] (1.000-1.030) Urine Protein (Negative) Urine Glucose (UA) (Negative) Urine Ketones (Negative) Urine Blood (Negative) Urine Nitrite (Negative) Urine Bilirubin (Negative) Urine Urobilinogen (Negative) Ur Leukocyte Esterase (Negative) Urine WBC (Auto) (0-5) /hpf Urine RBC (Auto) (0-4) /hpf U Hyaline Cast (Auto) (0-5) /lpf U Epithel Cells (Auto) (0-5) /lpf Urine Bacteria (Auto) (Negative) Salicylates < 1.7 L (2.8-20) mg/dl Urine Opiates Screen (Neg) Ur Methadone, Qual (Neg) Acetaminophen < 2 L (10-30) ug/ml Urine Barbiturates (Neg) Ur Phencyclidine (PCP) (Neg) U Amphetamin/Meth Scrn (Neg) MDMA (Ecstasy) Screen (Neg) U Benzodiazepines Scrn (Neg) Ur Cocaine Metabolite (Neg) U Marijuana (THC) Screen (Neg) Ethyl Alcohol mg/dL (0-3) mg/dl 09/01/18 09/01/18 09/01/18 Range/Units 11:26 12:00 12:00 WBC (4.8-10.8) K/uL RBC (4.2-5.4) M/uL Hgb (12.0-16.0) g/dL Hct (37-47) % MCV (80-100) fL MCH (25-34) pg MCHC (32-36) g/dL RDW Std Deviation (36.4-46.3) fL RDW Coeff of Mandeep (11.5-14.5) % Plt Count (130-400) K/uL MPV (7.4-10.4) fL Immature Gran % (Auto) % Neut % (Auto) % Lymph % (Auto) % [place] % (Auto) % Eos % (Auto) % Baso % (Auto) % Immature Gran # (Auto) (0.00-0.02) K/uL Neut # (Auto) (1.4-6.5) K/uL Lymph # (Auto) (1.2-3.4) K/uL [place] # (Auto) (0.11-0.59) K/uL Eos # (Auto) (0-0.5) K/uL Baso # (Auto) (0-0.2) K/uL Sodium (136-145) mmol/L Potassium (3.5-5.1) mmol/L Chloride (98-107) mmol/L Carbon Dioxide (21-32) mmol/L Anion Gap (3-11) BUN (7-18) mg/dl Creatinine (0.6-1.2) mg/dl Est Cr Clr Drug Dosing ml/min Est GFR ( Amer) Est GFR (Non-Af Amer) BUN/Creatinine Ratio (10-20) Glucose (70-99) mg/dl Calcium (8.5-10.1) mg/dl Total Bilirubin (0.2-1) mg/dl AST (15-37) U/L ALT (12-78) U/L Alkaline Phosphatase (45-117) U/L Total Protein (6.4-8.2) gm/dl Albumin (3.4-5.0) gm/dl Globulin (2.5-4.0) gm/dl Albumin/Globulin Ratio (0.9-2) TSH (0.300-4.500) uIu/ml Urine Color Yellow Urine Appearance Cloudy H (Clear) Urine pH 6.0 (4.5-7.5) Ur Specific [place] 1.025 (1.000-1.030) Urine Protein Negative (Negative) Urine Glucose (UA) Negative (Negative) Urine Ketones 3+ H (Negative) Urine Blood Negative (Negative) Urine Nitrite Negative (Negative) Urine Bilirubin Negative (Negative) Urine Urobilinogen Negative (Negative) Ur Leukocyte Esterase Negative (Negative) Urine WBC (Auto) 1-5 (0-5) /hpf Urine RBC (Auto) 0-4 (0-4) /hpf U Hyaline Cast (Auto) 1-5 (0-5) /lpf U Epithel Cells (Auto) >30 H (0-5) /lpf Urine Bacteria (Auto) Negative (Negative) Salicylates (2.8-20) mg/dl Urine Opiates Screen Neg (Neg) Ur Methadone, Qual Neg (Neg) Acetaminophen (10-30) ug/ml Urine Barbiturates Neg (Neg) Ur Phencyclidine (PCP) Neg (Neg) U Amphetamin/Meth Scrn Neg (Neg) MDMA (Ecstasy) Screen Neg (Neg) U Benzodiazepines Scrn Neg (Neg) Ur Cocaine Metabolite Neg (Neg) U Marijuana (THC) Screen Pos H (Neg) Ethyl Alcohol mg/dL < 3.0 (0-3) mg/dl Blood Pressure Blood Pressure Findings: Normal blood pressure Blood Pressure Disposition: did not require urgent referral MDM Narrative 1102: The patient was evaluated in room A5, and a complete history and physical examination were performed. Patient was seen and evaluated by me in the [facility] department yesterday. Was recommended to her by me as well as psychiatric case fitter that she should be admitted for inpatient psychiatric treatment. Her and the family declined. 1554: The patient's vital signs were stable. The patient is medically cleared at this time and accepted to [address] [place] [address]. Impression & Plan Post traumatic stress disorder, Auditory hallucination, Anxiety Discharge Plan Visit Data Chief Complaint: Mental Health Evaluation Stated Complaint: CPTSD BIPOLAR ED Provider: Marvin Coto Discharge Problem: Post traumatic stress disorder, Auditory hallucination, Anxiety Patient Disposition: Transfer Behavioral Health Fac Forms Stand Alone Forms: My [facility] Prescriptions Prescriptions: No Action MARIJUANA, HOME MEDICATION . 1 dose Inhalation DIRECTED Qty: 0 RF: 0 lorazepam 1 mg Tablet 1 mg PO DAILY PRN (Reason: Anxiety) Qty: 0 RF: 0 quetiapine 25 mg Tablet 25 mg PO DAILY Qty: 0 RF: 0 quetiapine 50 mg Tablet 50 mg PO DAILY Qty: 0 RF: 0 venlafaxine [Effexor XR] 150 mg Capsule,Extended Release 24hr 150 mg PO DAILY RF: 0 lamotrigine [Lamictal] 25 mg Tablet 25 mg PO BID RF: 0 hydroxyzine HCl 10 mg Tablet 10 mg PO BID PRN (Reason: Anxiety) RF: 0 Referrals Referrals: Andre Roberts MD [Primary Care Provider] - The scribe's documentation has been prepared under my direction and personally r eviewed by me in its entirety. I confirm that the note above accurately reflects all work, treatment, procedures, and medical decision making performed by me.
[2018-09-01] MEDS ORDERED: BISMUTH SUBSALICYLATE PER ML OMNICELL CHARGE PO PRN (17:05)
[2018-09-01] MEDS ORDERED: ALUMINUM/MAGNESIUM SUSP 30 ML UDC PO PRN (17:05)
[2018-09-01] MEDS ORDERED: SODIUM CHLORIDE 0.65% NA SOLN 45 ML (OCEAN) PRN (17:05)
[2018-09-01] MEDS ORDERED: MAGNESIUM HYDROXIDE SUSP 30 ML UDC PO PRN (17:05)
[2018-09-01] MEDS ORDERED: ACETAMINOPHEN 325 MG TAB PO PRN (17:05)
[2018-09-01] MEDS: lamoTRIgine 25 MG TAB PO SCH (21:02)
[2018-09-01] MEDS: QUETIAPINE FUMARATE 25 MG TABLET PO SCH (21:02)
[2018-09-02] MEDS: QUETIAPINE FUMARATE 25 MG TABLET PO PRN (06:22)
[2018-09-02] MEDS: VENLAFAXINE HCL XR 150 MG CAPXR PO SCH (09:18)
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
[2018-09-02] MEDS: QUETIAPINE FUMARATE 25 MG TABLET PO SCH (20:57)
[2018-09-02] MEDS: lamoTRIgine 25 MG TAB PO SCH (20:58)
[2018-09-03] MEDS: QUETIAPINE FUMARATE 25 MG TABLET PO PRN ×3 (00:38→12:33)
[2018-09-03] MEDS: VENLAFAXINE HCL XR 150 MG CAPXR PO SCH (08:10)
--- NOTE | 2018-09-03 09:58 | Psychiatric Progress Note ---
Date of Service September 03, 2018 Impression / Recommendations Impression Patient initially presents after requesting to meet with a provider immediately and having submitted her 72-hour notice. Attention was given to concerns reported and this provider was willing to work with the patient to address these concerns. Extensive time was spent with patient explaining recommendations for medication changes, providing education and counseling on her diagnosis and appropriate management of symptoms, and explanation of patient rights with voluntary versus involuntary commitments as well as explanation of 72-hour notice. Patient remained irritable during the entirety of our conversation, and displayed little interest in working with this provider to reach compromise. This provider recognized the patient's desire for sleep, as she states she has not been resting well. Patient was offered a as needed of quetiapine as well as 50 mg of hydroxyzine if patient needed to sleep. Explanation was given that if patient is reporting her symptoms were more suggestive of "bola" then of "a nxiety" that Lorazepam would not be a proper medication to treat her current concerns. Patient was requested to try the offered medications first, eventually only excepting PRN quetiapine. Patient is requesting to leave within 72 hours, but would recommend ongoing inpatient treatment for the duration of that request as she continues to report anxiety, bola, and concern for "getting back to psychosis" and is unable to verbalize ability to keep herself safe outside of the setting. There are also additional outpatient stressors which have yet to be addressed, the patient is considered to be at high risk of harm to herself or others without appropriate management of symptoms. See above for summary of conversation with patient's outpatient prescriber KAY Gee. Ms. Oropeza does report that patient is aware that her Lorazepam is being tapered, and that she will reach a time where it is no longer provided. Ms. Oropeza is in support of medical decisions being made, and states if lorazepam is discontinued during her stay it will no longer be provided as an outpatient. (1) Bipolar 1 disorder: 09/02 - Continue current medication regimen: 12.5mg of quetiapine added prn for anxiety/agitation and should be offered, as plan will likely be to titrate daily dose of quetiapine - Gather collateral information from to get a better sense of behaviors at home - Encourage participation in group and recreational therapies - Collateral information from outpatient providers was received, discussed with KAY Hightower - Suggest family meeting to involve outpatient supports in safety planning - Arrange appropriate aftercare, would benefit from well-trained therapist 09/03 -Patient is utilizing as needed doses of quetiapine 12.5 mg as needed -She has requested scheduled afternoon dose which we will provide -Family meeting is scheduled with patient's for tomorrow -Medication adjustments reviewed with outpatient prescriber via phone (2) Post traumatic stress disorder: 09/02 - Continue current medication regimen. Offering prn quetiapine for anxiety/agitation and "triggers", as lorazepam is not suggested in combination with her home medicinal marijuana use. - Best treatment course for PTSD would be establishing care with a well- trained therapist specializing in trauma 09/03 -Reviewed status of home dose of lorazepam, discussed alternatives of PRN quetiapine as well as as needed hydroxyzine for anxiety/triggers -Recommending patient be established with a well trained therapist to focus on PTSD symptoms Inventory Assets Strengths: Willingness for treatment, established prescriber, compliance with medications Needs: unsteady relationship with , well-trained therapist to assist with PTSD treatment Risk Factors Assessment Male: No : No Do You Have Access To A Gun?: No Health Problems: No Mental Health Diagnoses: Yes Substance Use Disorders: No (medicinal marijuana card) Previous Attempt: Yes (in teenage years for "control") Family History of Suicide: No Hopelessness: Yes Smoker: No Protective Factors Assessment 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 I have not slept since I been here, and that is my biggest problem. I want to leave today.". Review of Systems Notes Constitutional: Reports feeling "my back is hypersensitive, and my body is vibrating" Cardiovascular: denied Respiratory: denied Gastrointestinal: denied Neurological: denied Psychiatric: denies symptoms other than stated above Total of at least 10 systems reviewed, pertinent positives as above and in HPI. Sleep Information Total Hours of Sleep: 5.75 Meal Information Percent Meal Consumed - Breakfast: 5 Percent Meal Consumed - Lunch: 60 Percent Meal Consumed - Dinner: 50 Subjective Subjective Patient was seen & assessed and interval progress reviewed with Treatment Team. Staff reports the patient is requesting a scheduled dose of quetiapine in the afternoons. She has been attending groups. Patient was seen today to assess progress since admission. She is seen urgently as she has voiced frustrations to staff regarding medications. This provider was made aware that the patient is admitted her 72-hour notice. Patient states that she would like to leave today, due to the fact that she has not slept. Patient states that she is concerned about her current level of anxiety and is requesting her lorazepamfrustrated it was not ordered on admission. Education and counseling was provided on the reasoning for medication adjustments, that if goal is to manage mood fluctuations recommendation remains for titration of quetiapine. Patient was offered hydroxyzine for anxiety as well. Patient later contradicts herself by saying, "this is not anxiety. It something else." Patient was asked to explain how she was feeling physically and was eventually able to share with this provider, "I am feeling how I felt before I went full-blown manic." Patient reports multiple times "when I am psychotic it is not good"that remains consistent with previous story that she feels her medicinal marijuana use prior to admission contributed to her psychosis in the emergency room. Patient grew increasingly irritable as this provider continue to encourage as needed dosing of quetiapine to allow us to estimate a therapeutic daily dose. Patient continued to be focused on her lorazepam prescription. She was asked to try provided medications initially and then we would revisit. Patient grew increasingly irritable, demanding to leave today. Education was provided on voluntary versus involuntary admissions, as well as a meeting on a 72-hour noticeexplaining to patient that discharge today is not recommended, and therefore will not be possible. Reiterated that patient's signed request is to leave within 72 hours of signing her notice, and that inpatient treatment is to continue until that time. Patient reports a desire to call her to come pick her up, and to call her outpatient prescriber regarding her medications. This provider offered to again coordinate care with her outpatient prescriber and patient was agreeable to this. This provider spoke with KAY Gee at time of patient's admission yesterday. We had discussed medication management and coordinated patient care. Janelle Oropeza was suggesting titration of Seroquel versus trial of an alternative atypical antipsychotic, if financially feasible. This provider spoke with Johnna again this afternoon, per patient request. It is reported from patient's outpatient prescriber that the majority of her lorazepam prescription has been provided from her emergency room visits for panic episodes. Ms. Oropeza has been in the process of tapering patient's lorazepam, and states the patient is aware that the medication will not be provided for much longer. Dose was tapered to 0.5 mg in May, and limited supply is provided to patient. Ms. Oropeza is in agreement with medication adjustments, and is in agreement with attempts to manage anxiety without the use of lorazepam, as eventual plan is to discontinue the medication. She states the patient's has been in contact with her, and is in favor of ongoing inpatient t reatment for his . She has encouraged him to encourage his and treatment. Physical Exam Psychiatric Orientation: alert, oriented x 3 and + guarded Apperance: appropriately dressed and appropriately groomed Eye Contact: good eye contact Motor Behavior: steady gait and station and no abnormal motor movements Speech: normal rate/rhythm/volume of speech (irritabile tone, speech is not rapid or pressured) Affect: + irritable affect and + angry affect; no anxious affect Sitting with arms crossed, frequently rolling eyes and grimacing. Affect is not overtly manic in nature, with primary reported manic symptom being lack of sleep. Mood: + anxious mood and + irritable mood Stating, "I want to leave I want to leave today." Initially reports mood is anxious, then states she is not anxious but rather "I am feeling how I felt before I went full-blown manic." Thought Process: goal directed thought process; + thought process not linear or logical Thought Content: + preoccupation (With receiving her lorazepam) and reality based without delusions Suicidal Thoughts: denies suicidal thoughts, denies suicidal plan and denies suicidal intent Homicidal Thoughts: denies homicidal thoughts Hallucinations: no auditory hallucinations and no visual hallucinations Cognition: recent memory grossly intact, remote memory grossly intact, attention grossly intact and language grossly intact Estimated Intelligence: average estimated intelligence Insight: + limited insight (Especially with regard to understanding of medication decision making) Judgement: + limited judgement Vital Signs (Past 24 Hours) Last Vital Signs Temp 36.7 C 09/03/18 06:00 Pulse 78 09/03/18 07:15 Resp 17 09/03/18 06:00 BP 110/68 09/03/18 07:15 Pulse Ox 98 09/01/18 14:53 Results & Data Current Inpatient Medications Current Inpatient Medications: Current Inpatient Medications Acetaminophen (Tylenol) 650 mg PO Q4H PRN PRN Reason: Headache or Minor Fever Stop: 10/01/18 17:04 Al Hydrox/Mg Hydrox/Simethicone (Maalox) 30 ml PO Q4H PRN PRN Reason: GI Upset Stop: 10/01/18 17:04 Bismuth Subsalicylate (Kaopectate) 15 ml PO PRN PRN PRN Reason: Loose Stool Stop: 10/01/18 17:04 Hydroxyzine HCl (Vistaril) 50 mg PO HSZ PRN PRN Reason: Insomnia Stop: 10/01/18 17:04 Last Admin: 09/02/18 22:09 Dose: 50 mg Documented by: Hydroxyzine HCl (Vistaril) 25 mg PO Q4H PRN PRN Reason: Anxiety Stop: 10/01/18 17:04 Last Admin: 09/03/18 09:08 Dose: 25 mg Documented by: Lamotrigine (Lamictal) 50 mg PO HS [facility]ERRY Stop: 10/01/18 21:59 Last Admin: 09/02/18 20:58 Dose: 50 mg Documented by: Magnesium Hydroxide (Milk Of Magnesia) 30 ml PO DAILY PRN PRN Reason: Heartburn Stop: 10/01/18 17:04 Quetiapine Fumarate (Seroquel) 12.5 mg PO Q4H PRN PRN Reason: Anxiety Stop: 10/01/18 17:14 Last Admin: 09/03/18 08:10 Dose: 12.5 mg Documented by: Quetiapine Fumarate (Seroquel) 75 mg PO HS [facility] Stop: 10/01/18 21:59 Last Admin: 09/02/18 20:57 Dose: 75 mg Documented by: Sodium Chloride ([place] Nasal) 1 - 2 sprays NA PRN PRN PRN Reason: Nasal Dryness/Congestion Stop: 10/01/18 17:04 Venlafaxine HCl (Effexor Extended Release) 150 mg PO QAM [facility] Stop: 10/02/18 08:59 Last Admin: 09/03/18 08:10 Dose: 150 mg Documented by: Post Discharge Appointments Primary Care Physician Name Of Family Doctor: Dr. Roberts at [facility] Business Systems Analyst Name of Business Systems Analyst: Elise CPT Code CPT Code 91817
[2018-09-03] MEDS: lamoTRIgine 25 MG TAB PO SCH (21:00)
[2018-09-03] MEDS: QUETIAPINE FUMARATE 25 MG TABLET PO SCH (21:00)
[2018-09-04] MEDS: VENLAFAXINE HCL XR 150 MG CAPXR PO SCH (08:35)
[2018-09-04] MEDS: QUETIAPINE FUMARATE 25 MG TABLET PO PRN (09:01)
--- NOTE | 2018-09-04 11:40 | Psychiatric Progress Note ---
Date of Service September 04, 2018 Impression / Recommendations Impression Patient demonstrating reduced anxiety and more logical thought process this morning. She requests efforts to maximize mood stabilization which appears appropriate and will upwardly titrate Lamictal and Seroquel as below. (1) Bipolar 1 disorder: 09/02 - Continue current medication regimen: 12.5mg of quetiapine added prn for anxiety/agitation and should be offered, as plan will likely be to titrate daily dose of quetiapine - Gather collateral information from to get a better sense of behaviors at home - Encourage participation in group and recreational therapies - Collateral information from outpatient providers was received, discussed with KAY Hightower - Suggest family meeting to involve outpatient supports in safety planning - Arrange appropriate aftercare, would benefit from well-trained therapist 09/03 -Patient is utilizing as needed doses of quetiapine 12.5 mg as needed -She has requested scheduled afternoon dose which we will provide -Family meeting is scheduled with patient's for tomorrow -Medication adjustments reviewed with outpatient prescriber via phone 09/04/18 - increase lamictal to 75mg po qhs - increase HS seroquel to 100mg - advised against continued medical marijuana use at least until mood is re- stabilized d/t risk for anxiety/psychosis - she was accepting of this today (2) Post traumatic stress disorder: 09/02 - Continue current medication regimen. Offering prn quetiapine for anxiety/agitation and "triggers", as lorazepam is not suggested in combination with her home medicinal marijuana use. - Best treatment course for PTSD would be establishing care with a well- trained therapist specializing in trauma 09/03 -Reviewed status of home dose of lorazepam, discussed alternatives of PRN quetiapine as well as as needed hydroxyzine for anxiety/triggers -Recommending patient be established with a well trained therapist to focus on PTSD symptoms 09/04 - reduce prn hydroxyzine at 25mg - we expect sleep and overnight anxiety will improve on increased seroquel as above - consider reduction to SNRI Inventory Assets Strengths: Willingness for treatment, established prescriber, compliance with medications Needs: unsteady relationship with , well-trained therapist to assist with PTSD treatment Risk Factors Assessment Male: No : No Do You Have Access To A Gun?: No Health Problems: No Mental Health Diagnoses: Yes Substance Use Disorders: No (medicinal marijuana card) Previous Attempt: Yes (in teenage years for "control") Family History of Suicide: No Hopelessness: Yes Smoker: No Protective Factors Assessment Judaism Beliefs: Yes : Yes Responsible for Young Children: Yes Employed: No Stable Relationships: No Supportive Family: No Good Rapport with Provider: Yes Interval History Chief Complaint "I feel much better this morning. I was so scared." Review of Systems Sleep Information Total Hours of Sleep: 3 Sleep Comments: pt given vistaril per rn. pt awoke @0230 and remained awake reading magazine in the dayarea or laying in bed. pt on q-15 minute checks Meal Information Percent Meal Consumed - Breakfast: 100 Percent Meal Consumed - Lunch: 100 Percent Meal Consumed - Dinner: 100 Medication Trials palpitations. denies CP/tightness Subjective Subjective Patient was seen & assessed and interval progress reviewed with treatment team. Patient had a difficult day yesterday with some negative interactions with another unit patient. At times he appeared very irritable and demanding. She reportedly was resistant to the Ativan taper which apparently had been already initiated by her outpatient provider, Rachel Oropeza. Her 72-hour notice will come due on the at 12:05 PM. Per staff, she had a meeting with her today which went well and he was supportive. Patient evidences improving insight. She describes loud, animated, overly confident behaviors and bizarre transient believes such as being God and is able to appreciate the likelihood of underlying bipolar illness but has been insufficiently treated. She reports poor sleep again last night and complained of palpitations after taking hydroxyzine. She does seem a little somatically focused and describes a feeling of tension in her back associated with anxiety in the past which precipitates further anxiety she fears that it will become catastrophic in intensity. She reports improvement with daytime doses of Seroquel which have been well tolerated. "It takes the edge off and I do not get that feeling as much." She believes she has been on the same dose of Lamictal for quite some time. She recalls historical improvement in PTSD on Effexor. Physical Exam Psychiatric Orientation: alert, oriented to person, oriented to place and oriented to time; not guarded Apperance: appropriately dressed (hair dyed green on side. toe ring. multiple t attoos) Eye Contact: good eye contact Motor Behavior: + abnormal motor movements, no psychomotor agitation and n tremor Speech: no pressured speech (but overproductive and a little loud at times) Affect: + anxious affect affect animated but not euphoric Mood: + anxious mood Thought Process: no flight of ideas (but thoughts are rapid) Thought Content: no delusions (recent delusional thought content appears resolved) Suicidal Thoughts: denies suicidal thoughts Homicidal Thoughts: denies homicidal thoughts Hallucinations: no auditory hallucinations, no visual hallucinations and no tactile hallucinations Cognition: + attention not intact Insight: + limited insight Judgement: + limited judgement Vital Signs (Past 24 Hours) Last Vital Signs Temp 36.7 C 09/04/18 06:49 Pulse 99 H 09/04/18 06:50 Resp 16 09/04/18 06:49 BP 121/77 09/04/18 06:50 Pulse Ox 98 09/01/18 14:53 Results & Data Current Inpatient Medications Current Inpatient Medications: Current Inpatient Medications Acetaminophen (Tylenol) 650 mg PO Q4H PRN PRN Reason: Headache or Minor Fever Stop: 10/01/18 17:04 Al Hydrox/Mg Hydrox/Simethicone (Maalox) 30 ml PO Q4H PRN PRN Reason: GI Upset Stop: 10/01/18 17:04 Bismuth Subsalicylate (Kaopectate) 15 ml PO PRN PRN PRN Reason: Loose Stool Stop: 10/01/18 17:04 Hydroxyzine HCl (Vistaril) 50 mg PO HSZ PRN PRN Reason: Insomnia Stop: 10/01/18 17:04 Last Admin: 09/03/18 21:57 Dose: 50 mg Documented by: Hydroxyzine HCl (Vistaril) 25 mg PO Q4H PRN PRN Reason: Anxiety Stop: 10/01/18 17:04 Last Admin: 09/03/18 09:08 Dose: 25 mg Documented by: Lamotrigine (Lamictal) 50 mg PO HS KERRY Stop: 10/01/18 21:59 Last Admin: 09/03/18 21:00 Dose: 50 mg Documented by: Magnesium Hydroxide (Milk Of Magnesia) 30 ml PO DAILY PRN PRN Reason: Heartburn Stop: 10/01/18 17:04 Quetiapine Fumarate (Seroquel) 12.5 mg PO Q4H PRN PRN Reason: Anxiety Stop: 10/01/18 17:14 Last Admin: 09/04/18 09:01 Dose: 12.5 mg Documented by: Quetiapine Fumarate (Seroquel) 75 mg PO HS [facility] Stop: 10/01/18 21:59 Last Admin: 09/03/18 21:00 Dose: 75 mg Documented by: Sodium Chloride ([place] Nasal) 1 - 2 sprays NA PRN PRN PRN Reason: Nasal Dryness/Congestion Stop: 10/01/18 17:04 Venlafaxine HCl (Effexor Extended Release) 150 mg PO QAM [facility] Stop: 10/02/18 08:59 Last Admin: 09/04/18 08:35 Dose: 150 mg Documented by: Post Discharge Appointments Primary Care Physician Name Of Family Doctor: Dr. Roberts at [facility] Cmv Driver Name of Cmv Driver: Elise CPT Code CPT Code 70755
[2018-09-04] MEDS: lamoTRIgine 25 MG TAB PO SCH (20:55)
[2018-09-04] MEDS: QUETIAPINE FUMARATE 100 MG TABLET PO SCH (20:56)
[2018-09-05] MEDS: VENLAFAXINE HCL XR 150 MG CAPXR PO SCH (08:55)
[2018-09-05] MEDS: QUETIAPINE FUMARATE 25 MG TABLET PO PRN (08:56)
--- NOTE | 2018-09-05 10:42 | Psychiatric Progress Note ---
Date of Service September 05, 2018 Impression / Recommendations Impression Pt reporting improved mood and diminished anxiety. Tolerated escalation of seroquel with improved sleep last night but will need to watch headaches which have been a concern assoc w/ seroquel in past. Her 72h notice will come due tomorrow at 12:05pm at which time discharge is anticipated unless she demonstrates significant decompensation in clinical status. (1) Bipolar 1 disorder: 09/02 - Continue current medication regimen: 12.5mg of quetiapine added prn for anxiety/agitation and should be offered, as plan will likely be to titrate daily dose of quetiapine - Gather collateral information from to get a better sense of behaviors at home - Encourage participation in group and recreational therapies - Collateral information from outpatient providers was received, discussed with KAY Hightower - Suggest family meeting to involve outpatient supports in safety planning - Arrange appropriate aftercare, would benefit from well-trained therapist 09/03 -Patient is utilizing as needed doses of quetiapine 12.5 mg as needed -She has requested scheduled afternoon dose which we will provide -Family meeting is scheduled with patient's for tomorrow -Medication adjustments reviewed with outpatient prescriber via phone 09/04/18 - increase lamictal to 75mg po qhs - increase HS seroquel to 100mg - advised against continued medical marijuana use at least until mood is re- stabilized d/t risk for anxiety/psychosis - she was accepting of this today 09/05 - tolerated med changes yesterday apart from mild AM headache today (2) Post traumatic stress disorder: 09/02 - Continue current medication regimen. Offering prn quetiapine for anxiety/agitation and "triggers", as lorazepam is not suggested in combination with her home medicinal marijuana use. - Best treatment course for PTSD would be establishing care with a well- trained therapist specializing in trauma 09/03 -Reviewed status of home dose of lorazepam, discussed alternatives of PRN quetiapine as well as as needed hydroxyzine for anxiety/triggers -Recommending patient be established with a well trained therapist to focus on PTSD symptoms 09/04 - reduce prn hydroxyzine at 25mg - we expect sleep and overnight anxiety will improve on increased seroquel as above - consider reduction to SNRI Inventory Assets Strengths: Willingness for treatment, established prescriber, compliance with medications Needs: unsteady relationship with , well-trained therapist to assist with PTSD treatment Risk Factors Assessment Male: No : No Do You Have Access To A Gun?: No Health Problems: No Mental Health Diagnoses: Yes Substance Use Disorders: No (medicinal marijuana card) Previous Attempt: Yes (in teenage years for "control") Family History of Suicide: No Hopelessness: Yes Smoker: No Protective Factors Assessment Advent Beliefs: Yes : Yes Responsible for Young Children: Yes Employed: No Stable Relationships: No Supportive Family: No Good Rapport with Provider: Yes Interval History Chief Complaint "I don't feel like I'm in a hurry". Review of Systems Sleep Information Total Hours of Sleep: 7.5 Sleep Comments: pt on q-15 minute checks Meal Information Percent Meal Consumed - Breakfast: 65 Percent Meal Consumed - Lunch: 100 Percent Meal Consumed - Dinner: 90 mild headache Medication Trials palpitations. denies CP/tightness Subjective Subjective Patient was seen & assessed and interval progress reviewed with treatment team. No acute events overnight. She is participating in unit programming and compliant with medication. On interview she reports improved sleep last night on increased Seroquel. She did complain of a mild fleeting headache this morning but otherwise feels the Seroquel and increased dose of Lamictal were well tolerated. She asks questions about risk for psychosis and mood cycling in the future and we discussed the importance of adequate consistent mood stabilization. We also discussed interplay and destabilizing impact of anxiety associated with her trauma history. She expressed eagerness for discharge and her 72-hour notice will come due tomorrow at 1205. She is eager to return to her children. She denies any safety concerns today in considering likely pending discharge tomorrow. Physical Exam Psychiatric Orientation: alert, oriented x 3 and cooperative Apperance: appropriately dressed (casually groomed) Eye Contact: good eye contact Motor Behavior: no abnormal motor movements; no psychomotor agitation Speech: no pressured speech Affect: euthymic affect Mood: no depressed mood and no anxious mood Thought Process: linear/logical thought process Thought Content: no delusions Suicidal Thoughts: denies suicidal thoughts Homicidal Thoughts: denies homicidal thoughts Hallucinations: no auditory hallucinations, no visual hallucinations and no gustatory hallucinations Cognition: language grossly intact Insight: + fair insight Judgement: + fair judgement Vital Signs (Past 24 Hours) Last Vital Signs Temp 36.7 C 09/05/18 06:40 Pulse 80 04/14/19 08:41 Resp 16 09/05/18 06:40 BP 124/83 09/05/18 08:41 Pulse Ox 98 09/01/18 14:53 Results & Data Current Inpatient Medications Current Inpatient Medications: Current Inpatient Medications Acetaminophen (Tylenol) 650 mg PO Q4H PRN PRN Reason: Headache or Minor Fever Stop: 10/01/18 17:04 Al Hydrox/Mg Hydrox/Simethicone (Maalox) 30 ml PO Q4H PRN PRN Reason: GI Upset Stop: 10/01/18 17:04 Bismuth Subsalicylate (Kaopectate) 15 ml PO PRN PRN PRN Reason: Loose Stool Stop: 10/01/18 17:04 Hydroxyzine HCl (Vistaril) 25 mg PO Q4H PRN PRN Reason: Anxiety Stop: 10/01/18 17:04 Last Admin: 09/03/18 09:08 Dose: 25 mg Documented by: Hydroxyzine HCl (Vistaril) 25 mg PO HSZ PRN PRN Reason: Insomnia Stop: 10/01/18 17:04 Lamotrigine (Lamictal) 75 mg PO HS KERRY Stop: 10/04/18 21:59 Last Admin: 09/04/18 20:55 Dose: 75 mg Documented by: Magnesium Hydroxide (Milk Of Magnesia) 30 ml PO DAILY PRN PRN Reason: Heartburn Stop: 10/01/18 17:04 Quetiapine Fumarate (Seroquel) 12.5 mg PO Q4H PRN PRN Reason: Anxiety Stop: 10/01/18 17:14 Last Admin: 09/05/18 08:56 Dose: 12.5 mg Documented by: Quetiapine Fumarate (Seroquel) 100 mg PO HS KERRY Stop: 10/04/18 21:59 Last Admin: 09/04/18 20:56 Dose: 100 mg Documented by: Sodium Chloride ([place] Nasal) 1 - 2 sprays NA PRN PRN PRN Reason: Nasal Dryness/Congestion Stop: 10/01/18 17:04 Venlafaxine HCl (Effexor Extended Release) 150 mg PO QAM KERRY Stop: 10/02/18 08:59 Last Admin: 09/05/18 08:55 Dose: 150 mg Documented by: Post Discharge Appointments Primary Care Physician Name Of Family Doctor: Dr. Roberts at [facility] Time of Appointment with PCP: follow up as needed Provider Appointment Comment: [address], [place] [id number] Psychiatrist Name of Psychiatrist: Steven Oropeza Psychiatrist's Psychiatric Appointment Comment: [address], [place] [address] Therapist Name of Therapist: Heidi Craig LCSW Therapist's Date of Therapist Appointment: 09/09/18 Time of Therapist Appointment: 8am Therapy Appointment Comment: [address], [place] Skoog Operator Name of Skoog Operator: Elise Specialist Name of Specialist: [facility] - Dr. Barnes Phone Number for Specialist: Time of Appointment with Specialist: follow up as needed. Specialty Appointment Comment: [address], [place] [address] Contact Information Discharge Discharge Address: [facility] [place] [address] CPT Code CPT Code 26733
[2018-09-05] MEDS: lamoTRIgine 25 MG TAB PO SCH (21:24)
[2018-09-05] MEDS: QUETIAPINE FUMARATE 100 MG TABLET PO SCH (21:24)
[2018-09-06 07:08] LABS: Glucose Fasting 83 mg/dl (70-99)
[2018-09-06 07:14] LABS: Chol HDL Ratio 2; Cholesterol 179 mg/dl (0-200); HDL Cholesterol 77 mg/dl; LDL Cholesterol Calculated 92 mg/dl; Triglycerides 48 mg/dl (0-150); VLDL Cholesterol 10 mg/dl
[2018-09-06] MEDS: VENLAFAXINE HCL XR 150 MG CAPXR PO SCH (08:44)
[2018-09-06] MEDS: QUETIAPINE FUMARATE 25 MG TABLET PO PRN (09:11)
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
[2018-09-06] MEDS ORDERED: DESTROY THIS MEDICATION ONE (10:13)
[2018-09-06] MEDS ORDERED: DESTROY THIS MEDICATION SCH (10:13)
== END 2018-09-06 10:33 | disposition home or self-care (01) | DRG 885 ==
LOC: ED 10:48 → 3S 15:48

== ENCOUNTER 2018-11-23 12:45 | Inpatient (IN) ==
[2018-11-23 13:34] LABS: Basophils # (auto) 0.02 K/uL (0-0.2); Basophils % (auto) 0.3 %; Eosinophils # (auto) 0.03 K/uL (0-0.5); Eosinophils % (auto) 0.5 %; Hematocrit (blood only) 38.7 % (37-47); Hemoglobin 13.9 g/dL (12.0-16.0); Immature Granulocytes # (auto) 0.02 K/uL (0.00-0.02); Immature Granulocytes % (auto) 0.3 %; Lymphocytes # (auto) 1.93 K/uL (1.2-3.4); Lymphocytes % (auto) 31.5 %; Mean Corpuscular Hgb Conc 35.9 g/dL (32-36); Mean Corpuscular Volume 86.6 fL (80-100); Mean Platelet Volume 9.9 fL (7.4-10.4); Monocytes # (auto) 0.56 K/uL (0.11-0.59); Monocytes % (auto) 9.2 %; Neutrophils # (auto) 3.56 K/uL (1.4-6.5); Neutrophils % (auto) 58.2 %; Platelet Count 230 K/uL (130-400); RDW Coefficient of Variation 12.7 % (11.5-14.5); RDW Standard Deviation 40.4 fL (36.4-46.3); Red Blood Count 4.47 M/uL (4.2-5.4); White Blood Count 6.12 K/uL (4.8-10.8)
[2018-11-23 13:49] LABS: Albumin Level 4.7 gm/dl (3.4-5.0); BUN Creatinine Ratio 30.2 (10-20); Calcium 9.3 mg/dl (8.5-10.1); Creatinine Clr Calc Pharmacy 74.7 ml/min; Est GFR (African American) 127.1; Est GFR (Non-African American) 109.7; Potassium 3.5 mmol/L (3.5-5.1)
[2018-11-23 13:59] LABS: Acetaminophen < 2 ug/ml (10-30); Salicylate < 1.7 mg/dl (2.8-20)
[2018-11-23 14:00] LABS: Albumin Globulin Ratio 1.5 (0.9-2); Bilirubin,Total 0.7 mg/dl (0.2-1); Globulin 3.2 gm/dl (2.5-4.0); Total Protein 7.9 gm/dl (6.4-8.2)
--- NOTE | 2018-11-23 16:27 | Emergency Department Note ---
Entered by Anjana Blair acting as a scribe for Derrek Swift DO History of Present Illness General Chief complaint: Mental Health Evaluation Stated complaint: MHMR Source: patient and other (psych correctional case records supervisor) History of Present Illness Onset (ago): day(s) (today) Location: head Pain Consistency: + other (episode) Maximum Pain Intensity: 0 Quality: + other (mental health) Associated symptoms: + denies other symptoms (SI, HI, any physical complaints) The patient is a 38 year old female who presents to the ED for a mental health evaluation. Per the mental health correctional case records supervisor, the patient was at the airport with no shoes and no money to get on a plane. They report that the patient didnt have a plane ticket, but was insistent she did. The patient states that she thinks someone hacked into her phone to ruin her life. She states that she thinks that they messed up her plane tickets. She reports that some stupid hacker is just trying to ruin her life. She notes that because of this, the jewel bearing polisher bought her in. The patient notes that she doesnt have Bipolar Disorder, but has been taking medications for it. The patient denies suicidal ideations, homicidal ideations, and anything physically bothering her. Home Medications Home Medications Medication Instructions Recorded Confirmed Type lamotrigine 25 mg PO HS 11/18/18 11/23/18 History quetiapine 100 mg PO HS 11/18/18 11/23/18 History venlafaxine 150 mg PO DAILY 11/18/18 11/23/18 History Allergies Allergy/AdvReac Type Severity Reaction Status Date / Time Penicillins Allergy Intermediate rash Verified 09/01/18 11:28 latex Allergy Mild RASH Verified 09/01/18 11:28 Past Med/Surg History Medical History Anxiety (Chronic) Palpitations (Acute) Paresthesia (Acute) Laceration of right elbow without complication (Acute) Chest pain (Acute) Anxiety (Chronic) Manic depressive disorder (Chronic) Auditory hallucination (Inactive) Post traumatic stress disorder (Inactive) Bipolar disorder Family History Other No significant family history Social History Preferred Language: Bulgarian Communication Ability: Effective Beliefs That Will Affect Care: Spiritual (Amish) marital status: Current Living Situation: Family Feels Safe at Home: No Smoking Status: Never smoker Tobacco Type: e-cigarettes Hx Alcohol Use: No Hx Substance Use: Yes substance use type: marijuana Review of Systems See HPI for pertinent positives & negatives. and A total of 10 systems reviewed and were otherwise negative Physical Exam Vital Signs Vital Signs - 24 hr 11/23/18 12:53 Temperature 36.7 C Temperature Source Oral Sepsis Recent Fever Within 48 Hours No Sepsis New/Unexplained Change in Mental Status No Sepsis Action Taken by Nursing No Action Required Pulse Rate 92 H Respiratory Rate 16 Blood Pressure 155/98 H Blood Pressure Mean 117 Pulse Oximetry 99 Oxygen Delivery Method Room Air GENERAL: sitting up in bed, disheveled, no acute distress, nontoxic EYE EXAM: normal conjunctiva, PERRL and EOM's grossly intact OROPHARYNX: no exudate, no erythema, lips, buccal mucosa, and tongue normal and mucous membranes are moist NECK: supple, no nuchal rigidity, no adenopathy, non-tender LUNGS: Clear to auscultation. Normal chest wall mechanics HEART: no murmurs, S1 normal and S2 normal ABDOMEN: abdomen soft, non-tender, normo-active bowel sounds, no masses, no rebound or guarding. BACK: Back is symmetrical on inspection and there is no deformity, no midline tenderness, no CVA tenderness. SKIN: no rashes and no bruising UPPER EXTREMITIES: upper extremities are grossly normal. LOWER EXTREMITIES: No pitting edema. NEURO EXAM: Delusional, paranoid, difficult to follow in conversation, cranial nerves II-XII grossly intact, normal speech, no gross weakness of arms, no gross weakness of legs. PSYCH: Denies homicidal and suicidal ideations. Course ED COURSE: Vital signs were reviewed and showed situational hypertension. The patients medical record was reviewed The above diagnostic studies were performed and reviewed. ED treatments and interventions as stated above. 1338: The patient was evaluated in room A8. A complete history and physical examination was performed. 1843: The patient was accepted to [address] [place] [address]. Based on the patients age, coexisting illnesses, exam and lab findings the decision to treat as an inpatient was made. The patient remained stable while under my care. The patient will be evaluated for further management. Medical Decision Making Differential Diagnosis Differential diagnoses considered include mood disorder, infection, hypoglycemia, electrolyte abnormalities, cardiac sources, intracerebral event, toxicologic, neurologic, as well as others. Medical Records Attestation: I reviewed the patient's medical records. Home Medications Current Medication List: was personally reviewed by me Laboratory Data Attestation: I reviewed the patient's lab results. Result diagrams: 11/23/18 13:20 11/23/18 13:20 Lab Results 11/23/18 11/23/18 11/23/18 Range/Units 13:20 13:20 13:20 WBC 6.12 (4.8-10.8) K/uL RBC 4.47 (4.2-5.4) M/uL Hgb 13.9 (12.0-16.0) g/dL Hct 38.7 (37-47) % MCV 86.6 (80-100) fL MCH 31.1 (25-34) pg MCHC 35.9 (32-36) g/dL RDW Std Deviation 40.4 (36.4-46.3) fL RDW Coeff of Mandeep 12.7 (11.5-14.5) % Plt Count 230 (130-400) K/uL MPV 9.9 (7.4-10.4) fL Immature Gran % (Auto) 0.3 % Neut % (Auto) 58.2 % Lymph % (Auto) 31.5 % Dundy % (Auto) 9.2 % Eos % (Auto) 0.5 % Baso % (Auto) 0.3 % Immature Gran # (Auto) 0.02 (0.00-0.02) K/uL Neut # (Auto) 3.56 (1.4-6.5) K/uL Lymph # (Auto) 1.93 (1.2-3.4) K/uL Dundy # (Auto) 0.56 (0.11-0.59) K/uL Eos # (Auto) 0.03 (0-0.5) K/uL Baso # (Auto) 0.02 (0-0.2) K/uL Sodium 143 (136-145) mmol/L Potassium 3.5 (3.5-5.1) mmol/L Chloride 109 H (98-107) mmol/L Carbon Dioxide 23 (21-32) mmol/L Anion Gap 11.0 (3-11) BUN 21 H (7-18) mg/dl Creatinine 0.69 (0.6-1.2) mg/dl Est Cr Clr Drug Dosing 74.7 ml/min Est GFR ( Amer) 127.1 Est GFR (Non-Af Amer) 109.7 BUN/Creatinine Ratio 30.2 H (10-20) Glucose 87 (70-99) mg/dl Calcium 9.3 (8.5-10.1) mg/dl Total Bilirubin 0.7 (0.2-1) mg/dl AST 19 (15-37) U/L ALT 25 (12-78) U/L Alkaline Phosphatase 68 (45-117) U/L Total Protein 7.9 (6.4-8.2) gm/dl Albumin 4.7 (3.4-5.0) gm/dl Globulin 3.2 (2.5-4.0) gm/dl Albumin/Globulin Ratio 1.5 (0.9-2) TSH 0.719 (0.300-4.500) uIu/ml Urine Color Urine Appearance (Clear) Urine pH (4.5-7.5) Ur Specific [place] (1.000-1.030) Urine Protein (Negative) Urine Glucose (UA) (Negative) Urine Ketones (Negative) Urine Blood (Negative) Urine Nitrite (Negative) Urine Bilirubin (Negative) Urine Urobilinogen (Negative) Ur Leukocyte Esterase (Negative) Urine WBC (Auto) (0-5) /hpf Urine RBC (Auto) (0-4) /hpf U Hyaline Cast (Auto) (0-5) /lpf U Epithel Cells (Auto) (0-5) /lpf Urine Bacteria (Auto) (Negative) POC Ur Test (NEG) Salicylates < 1.7 L (2.8-20) mg/dl Urine Opiates Screen (Neg) Ur Methadone, Qual (Neg) Acetaminophen < 2 L (10-30) ug/ml Urine Barbiturates (Neg) Ur Phencyclidine (PCP) (Neg) U Amphetamin/Meth Scrn (Neg) MDMA (Ecstasy) Screen (Neg) U Benzodiazepines Scrn (Neg) Ur Cocaine Metabolite (Neg) U Marijuana (THC) Screen (Neg) Ethyl Alcohol mg/dL (0-3) mg/dl 11/23/18 11/23/18 11/23/18 Range/Units 13:20 13:55 17:21 WBC (4.8-10.8) K/uL RBC (4.2-5.4) M/uL Hgb (12.0-16.0) g/dL Hct (37-47) % MCV (80-100) fL MCH (25-34) pg MCHC (32-36) g/dL RDW Std Deviation (36.4-46.3) fL RDW Coeff of Mandeep (11.5-14.5) % Plt Count (130-400) K/uL MPV (7.4-10.4) fL Immature Gran % (Auto) % Neut % (Auto) % Lymph % (Auto) % [place] % (Auto) % Eos % (Auto) % Baso % (Auto) % Immature Gran # (Auto) (0.00-0.02) K/uL Neut # (Auto) (1.4-6.5) K/uL Lymph # (Auto) (1.2-3.4) K/uL [place] # (Auto) (0.11-0.59) K/uL Eos # (Auto) (0-0.5) K/uL Baso # (Auto) (0-0.2) K/uL Sodium (136-145) mmol/L Potassium (3.5-5.1) mmol/L Chloride (98-107) mmol/L Carbon Dioxide (21-32) mmol/L Anion Gap (3-11) BUN (7-18) mg/dl Creatinine (0.6-1.2) mg/dl Est Cr Clr Drug Dosing ml/min Est GFR ( Amer) Est GFR (Non-Af Amer) BUN/Creatinine Ratio (10-20) Glucose (70-99) mg/dl Calcium (8.5-10.1) mg/dl Total Bilirubin (0.2-1) mg/dl AST (15-37) U/L ALT (12-78) U/L Alkaline Phosphatase (45-117) U/L Total Protein (6.4-8.2) gm/dl Albumin (3.4-5.0) gm/dl Globulin (2.5-4.0) gm/dl Albumin/Globulin Ratio (0.9-2) TSH (0.300-4.500) uIu/ml Urine Color Urine Appearance (Clear) Urine pH (4.5-7.5) Ur Specific [place] (1.000-1.030) Urine Protein (Negative) Urine Glucose (UA) (Negative) Urine Ketones (Negative) Urine Blood (Negative) Urine Nitrite (Negative) Urine Bilirubin (Negative) Urine Urobilinogen (Negative) Ur Leukocyte Esterase (Negative) Urine WBC (Auto) (0-5) /hpf Urine RBC (Auto) (0-4) /hpf U Hyaline Cast (Auto) (0-5) /lpf U Epithel Cells (Auto) (0-5) /lpf Urine Bacteria (Auto) (Negative) POC Ur Test NEG (NEG) Salicylates (2.8-20) mg/dl Urine Opiates Screen Neg (Neg) Ur Methadone, Qual Neg (Neg) Acetaminophen (10-30) ug/ml Urine Barbiturates Neg (Neg) Ur Phencyclidine (PCP) Neg (Neg) U Amphetamin/Meth Scrn Neg (Neg) MDMA (Ecstasy) Screen Neg (Neg) U Benzodiazepines Scrn Neg (Neg) Ur Cocaine Metabolite Neg (Neg) U Marijuana (THC) Screen Pos H (Neg) Ethyl Alcohol mg/dL < 3.0 (0-3) mg/dl 11/23/18 Range/Units 17:21 WBC (4.8-10.8) K/uL RBC (4.2-5.4) M/uL Hgb (12.0-16.0) g/dL Hct (37-47) % MCV (80-100) fL MCH (25-34) pg MCHC (32-36) g/dL RDW Std Deviation (36.4-46.3) fL RDW Coeff of Mandeep (11.5-14.5) % Plt Count (130-400) K/uL MPV (7.4-10.4) fL Immature Gran % (Auto) % Neut % (Auto) % Lymph % (Auto) % [place] % (Auto) % Eos % (Auto) % Baso % (Auto) % Immature Gran # (Auto) (0.00-0.02) K/uL Neut # (Auto) (1.4-6.5) K/uL Lymph # (Auto) (1.2-3.4) K/uL [place] # (Auto) (0.11-0.59) K/uL Eos # (Auto) (0-0.5) K/uL Baso # (Auto) (0-0.2) K/uL Sodium (136-145) mmol/L Potassium (3.5-5.1) mmol/L Chloride (98-107) mmol/L Carbon Dioxide (21-32) mmol/L Anion Gap (3-11) BUN (7-18) mg/dl Creatinine (0.6-1.2) mg/dl Est Cr Clr Drug Dosing ml/min Est GFR ( Amer) Est GFR (Non-Af Amer) BUN/Creatinine Ratio (10-20) Glucose (70-99) mg/dl Calcium (8.5-10.1) mg/dl Total Bilirubin (0.2-1) mg/dl AST (15-37) U/L ALT (12-78) U/L Alkaline Phosphatase (45-117) U/L Total Protein (6.4-8.2) gm/dl Albumin (3.4-5.0) gm/dl Globulin (2.5-4.0) gm/dl Albumin/Globulin Ratio (0.9-2) TSH (0.300-4.500) uIu/ml Urine Color Yellow Urine Appearance Turbid A (Clear) Urine pH 7.5 (4.5-7.5) Ur Specific [place] 1.020 (1.000-1.030) Urine Protein Negative (Negative) Urine Glucose (UA) Negative (Negative) Urine Ketones 2+ H (Negative) Urine Blood Negative (Negative) Urine Nitrite Negative (Negative) Urine Bilirubin Negative (Negative) Urine Urobilinogen Negative (Negative) Ur Leukocyte Esterase 1+ H (Negative) Urine WBC (Auto) 5-10 H (0-5) /hpf Urine RBC (Auto) 0-4 (0-4) /hpf U Hyaline Cast (Auto) 0 (0-5) /lpf U Epithel Cells (Auto) >30 H (0-5) /lpf Urine Bacteria (Auto) Negative (Negative) POC Ur Test (NEG) Salicylates (2.8-20) mg/dl Urine Opiates Screen (Neg) Ur Methadone, Qual (Neg) Acetaminophen (10-30) ug/ml Urine Barbiturates (Neg) Ur Phencyclidine (PCP) (Neg) U Amphetamin/Meth Scrn (Neg) MDMA (Ecstasy) Screen (Neg) U Benzodiazepines Scrn (Neg) Ur Cocaine Metabolite (Neg) U Marijuana (THC) Screen (Neg) Ethyl Alcohol mg/dL (0-3) mg/dl Blood Pressure Blood Pressure Findings: Elevated blood pressure Blood Pressure Disposition: elevated BP felt to be situational MDM Narrative Patient is a 38-year-old female presents the ER with past medical history of bipolar disorder. She was at the airport without shoes and was not packed. She notes that someone has been tapping her electronics and canceled her to take it. At the airport she also did not have any tickets pleat. She does believe that someone is out there to get her. She does appear to be delusional and manic. She has no physical complaints at this time. Upon review of the chart she has been here multiple times recently. Labs were obtained and showed no significant leukocytosis or anemia. BMP along with LFTs bilirubin and TSH was unremarkable. UA was contaminated. was negative. Tox was negative with exception of marijuana. Alcohol was negative. Patient was updated bedside. She was accepted on . Impression & Plan Mood disorder, Manic behavior Discharge Plan Visit Data Chief Complaint: Mental Health Evaluation Stated Complaint: [facility] ED Provider: Derrek Swift Discharge Problem: Mood disorder, Manic behavior Patient Disposition: Transfer Behavioral Health Fac Forms Stand Alone Forms: My [facility] Prescriptions Prescriptions: No Action lamotrigine 25 mg tablet 25 mg PO HS RF: 0 quetiapine 100 mg tablet 100 mg PO HS RF: 0 venlafaxine 150 mg capsule,extended release 24hr 150 mg PO DAILY RF: 0 Referrals Referrals: Andre Roberts MD [Primary Care Provider] - The vishalibe's documentation has been prepared under my direction and personally reviewed by me in its entirety. I confirm that the note above accurately reflects all work, treatment, procedures, and medical decision making performed by me.
[2018-11-23 17:42] LABS: Appearance Urine Turbid (Clear); Bacteria Urine Automated Negative (Negative); Bilirubin Urine Negative (Negative); Blood Urine Negative (Negative); Cast Urine Automated 0 /lpf (0-5); Color Urine Yellow; Epithelial Cell Urine Auto >30 /lpf (0-5); Glucose Urine UA Negative (Negative); Ketones Urine 2+ (Negative); Leukocyte Esterase Urine 1+ (Negative); Nitrite Urine Negative (Negative); Protein Urine Negative (Negative); RBC Urine Automated 0-4 /hpf (0-4); Urobilinogen Urine Negative (Negative); pH Urine 7.5 (4.5-7.5)
[2018-11-23 18:03] LABS: Amphetamines+Metham, Urine Neg (Neg); Barbiturates, Urine Neg (Neg); Benzodiazepine, Urine Neg (Neg); Cocaine, Urine Neg (Neg); MDMA (Ecstacy), Urine Neg (Neg); Methadone, Urine Neg (Neg); Opiate, Urine Neg (Neg); Phencyclidine, Urine Neg (Neg)
[2018-11-23] MEDS ORDERED: BISMUTH SUBSALICYLATE PER ML OMNICELL CHARGE PO PRN ×2 (19:37→22:35)
[2018-11-23] MEDS ORDERED: LORazepam 2 MG/ML VIAL (IM USE) IM STA (20:52)
[2018-11-23] MEDS ORDERED: HALOPERIDOL LACTATE 5 MG/ML 1 ML VIAL IM STA (20:52)
[2018-11-23] MEDS ORDERED: LORazepam 2 MG/ML VIAL (IM USE) ONE (20:54)
[2018-11-23] MEDS ORDERED: HALOPERIDOL LACTATE 5 MG/ML 1 ML VIAL ONE (20:54)
--- NOTE | 2018-11-23 21:00 | Emergency Department Note ---
ED Visit Note Just prior to the patient signing the 201 she requested to leave. At that time patient became extremely agitated and yelling. Can help was called. They agreed to uphold 302. Patient continued to be agitated and aggressive. Patient was given 10 mg IM Haldol 1 mg IM Ativan. Patient was accepted to [address]. on a 302. Patient was monitored closely while in the ER. Patient was reassessed following administration of medications that she awakened easily to verbal stimuli. Able to still have a conversation. Patient will be monitored closely and taking up shortly to [address]. I have personally spent 35 minutes of critical care time in the direct management of this patient. This includes bedside care, interpretation of diagnostic studies, and testing, discussion with consultants, patient, and family members, and other required patient management activities. This 35 minutes is in excess of all separately billable procedures. .
[2018-11-23] MEDS ORDERED: ALUMINUM/MAGNESIUM SUSP 30 ML UDC PO PRN (22:35)
[2018-11-23] MEDS ORDERED: ACETAMINOPHEN 325 MG TAB PO PRN (22:35)
[2018-11-23] MEDS ORDERED: SODIUM CHLORIDE 0.65% NA SOLN 45 ML (OCEAN) PRN (22:35)
[2018-11-23] MEDS ORDERED: MAGNESIUM HYDROXIDE SUSP 30 ML UDC PO PRN (22:35)
[2018-11-23] MEDS ORDERED: QUETIAPINE FUMARATE 25 MG TABLET PO PRN (22:44)
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
[2018-11-24] MEDS: lamoTRIgine 25 MG TAB PO SCH (20:51)
[2018-11-24] MEDS: QUETIAPINE FUMARATE 100 MG TABLET PO SCH (20:51)
--- NOTE | 2018-11-25 19:31 | Psychiatric Progress Note ---
Date of Service November 25, 2018 Impression / Recommendations Impression 38-year-old female with a history of bipolar disorder type I, PTSD, and cannabis abuse with multiple recent ER visits for psychosis and erratic behavior in the context of medication noncompliance and THC use. She was admitted involuntarily after police were called to the airport due to mood lability and erratic behavior, insisting that she had purchased a flight although she had not, and believing that someone had hacked her phone. Inconsistent reports and is not a reliable historian, and initially told ER staff that she had not been taking medications for weeks, but today says she is taking medications, although cannot tell me the names or doses. She dropped out of therapy, and is continued to smoke marijuana multiple times daily despite being advised multiple times over the past month to stop use given the worsening of her psychotic symptoms. She does not believe she needs to be hospitalized and has very poor insight and judgment. It sounds as if she went to the airport yesterday to catch a flight, leaving at least 1 of her children at home alone, and believes she had a ticket to fly to [place], although she did not. She states her [id number] now has her children, but this will need to be confirmed by the sr. social media & mobile manager today. She is unable to provide for her own basic needs without the care and assistance of others, has not been able to work or care for her children, has b een behaving erratically with numerous ER visits (3 in 3 weeks) for mental health evaluations, admits to unstable mood, decreased sleep and appetite with weight loss, was aggressive and threatening towards hospital staff in the ER, and is at imminent risk of harm to herself and others as a result of her psychosis if symptoms are not stabilized. Inpatient treatment is medically necessary and is the least restrictive appropriate level. (1) Bipolar 1 disorder: 11/24 -current episode manic with psychosis. Patient has been off her medications, and was resumed on lamotrigine 25 mg last night on admission. I will also resume quetiapine 100 mg at bedtime, to be titrated to a therapeutic dose. Continue 50 mg 3 times daily as needed psychosis. -Hold antidepressant due to risk of destabilizing mood (venlafaxine XR). -Fasting glucose and lipid profile from 09/06/2018 reviewed: All values within normal limits. TSH normal on admission. -Consider need for more potent mood stabilizer such as Depakote or lithium. However, compliance is an issue. -Patient has dropped out of therapy and does not have a therapeutic case manager. Coordinate care with her outpatient craps dealer, KAY Gee at [facility]. -Symptoms exacerbated by cannabis use. Patient has been advised multiple times to discontinue medicinal marijuana, but is declining to do so. Contacted Dr. Foote's office and spoke to his staff to inform them of her multiple ER visits and inpatient psychiatric hospitalizations with psychotic symptoms, and recommendations that she not use THC as it is exacerbating her symptoms. -Patient admitted on a 302 involuntary commitment; filed for a 303 involuntary commitment with hearing to be held Thursday, 11/26/201811/25- attempted to raise lamictal to 50mg hs given rx'd dose of 75mg and been taking at 25mg but pt refused, attempted to raise seroquel dose but pt refused, reviewed 302 and 303 process. attempted to establish Therapeutic alliances but lack of progress in this noted, 303 hearing 11/26 at 9:30am (2) PTSD (post-traumatic stress disorder): 11/24 -patient dropped out of therapy. When she is less psychotic, explore options for outpatient treatment. -Medical marijuana is contraindicated due to her repeated psychotic episodes, which are exacerbated by THC. Dr. Foote has certified her, his office was informed as above and asked that he call to discuss when he returns (he is out of the office today). (3) Cannabis abuse: 11/24 -patient has been smoking cannabis multiple times daily, and reported during recent ER visits that she was using more than she was supposed to. Both she and her admitted that her psychotic symptoms occur when she smokes more marijuana, and she has been advised by multiple physicians to abstain, but refuses to do so. -Again reviewed the risks of ongoing cannabis use with her today, including worsening mood lability and psychosis, as well as the recommendations for abstinence. (4) Noncompliance: Inventory Assets Needs: Sobriety from substances, return to regular therapy, compliance with medications Risk Factors Assessment Male: No : No Do You Have Access To A Gun?: No Health Problems: No Mental Health Diagnoses: Yes Substance Use Disorders: Yes Previous Psychiatric Hospitalization: Yes Protective Factors Assessment : Yes (But in the process of divorce) Responsible for Young Children: Yes Employed: Yes (Works at a [employer]) Stable Relationships: No Supportive Family: No Good Rapport with Provider: No (Quit going to therapy as she did not like her therapist) Interval History Chief Complaint "I am fine". Review of Systems Sleep Information Total Hours of Sleep: 10.75 Sleep Comments: pt appeared to sleep 3.75 hrs during evening shift. pt on q-15 minute checks Meal Information Percent Meal Consumed - Breakfast: 100 Percent Meal Consumed - Lunch: 100 Percent Meal Consumed - Dinner: 100 Nutrition Comment: per meal record Subjective Subjective Patient was seen & assessed and interval progress reviewed with nursing. Pt expreses no insight into why in the hspital and why peopel have been concerned for her, she states that she came to Er volunterrly and does not udnerstand why she is in rafi spitalas did not sign herself in. IN fact police brought her to the ER and she is a 302 committment with a 303 hearing set for tomorrow. THe 302 qand 303 process was reviewed with her muiple times today and she woulld instead focus on not understanding why she is having to stay in the hospital. She shared how Rachel Oropeza has her on lamictal 75mg each day and seroquel 100mg hs and that she only takes 25mg a day of lamictal perhaps that is all that "is recomended" with not able to explain what she means by that when its rx'd at the 75mg dose. She is not willing to raise either of these medciaitons nor explore other emdications. She indicates that lamictal was added because Rachel Oropeza was thinking she was not slepeing well and pt inciated that she thinks this was not needed to be added. Pt shows lack of insght, impaired jdugment and disorganizaiton in her thinking throughut this assessment. She indicated not finding her bed comfortable and was suprisd that she slept decently last night, appetite intact and eating her meals and finds the food good here overall. She denied SI or HI. denied AH or VH. denied viewing herself as paranoid Physical Exam Psychiatric Orientation: alert, oriented x 3 and + guarded Apperance: appropriately dressed Eye Contact: + poor eye contact Motor Behavior: no abnormal motor movements Speech: normal rate/rhythm/volume of speech Affect: + irritable affect Mood: + angry mood Thought Process: + looseness of associations Thought Content: + paranoid Suicidal Thoughts: denies suicidal thoughts Homicidal Thoughts: denies homicidal thoughts Hallucinations: no auditory hallucinations Cognition: + recent memory not intact and + attention not intact Insight: + severely impaired insight Judgement: + impaired judgement Vital Signs (Past 24 Hours) Last Vital Signs Temp 36.6 C 11/25/18 06:49 Pulse 120 H 11/25/18 06:50 Resp 18 11/25/18 06:49 BP 111/82 11/25/18 06:50 Pulse Ox 96 11/23/18 21:22 Results & Data Current Inpatient Medications Current Inpatient Medications: Current Inpatient Medications Acetaminophen (Tylenol) 650 mg PO Q4H PRN PRN Reason: Headache or Minor Fever Stop: 12/23/18 22:34 Al Hydrox/Mg Hydrox/Simethicone (Maalox) 30 ml PO Q4H PRN PRN Reason: GI Upset Stop: 12/23/18 22:34 Bismuth Subsalicylate (Kaopectate) 15 ml PO PRN PRN PRN Reason: Loose Stool Stop: 12/23/18 22:34 Hydroxyzine HCl (Vistaril) 50 mg PO HSZ PRN PRN Reason: Insomnia Stop: 12/23/18 22:34 Hydroxyzine HCl (Vistaril) 25 mg PO Q4H PRN PRN Reason: Anxiety Stop: 12/23/18 22:34 Lamotrigine (Lamictal) 25 mg PO HS [facility] Stop: 12/24/18 21:59 Last Admin: 11/24/18 20:51 Dose: 25 mg Documented by: Magnesium Hydroxide (Milk Of Magnesia) 30 ml PO DAILY PRN PRN Reason: Heartburn Stop: 12/23/18 22:34 Quetiapine Fumarate (Seroquel) 50 mg PO TID PRN PRN Reason: Agitation Stop: 12/23/18 22:43 Quetiapine Fumarate (Seroquel) 100 mg PO HS [facility] Stop: 12/24/18 21:59 Last Admin: 11/24/18 20:51 Dose: 100 mg Documented by: Sodium Chloride ([place] Nasal) 1 - 2 sprays NA PRN PRN PRN Reason: Nasal Dryness/Congestion Stop: 12/23/18 22:34 Mental Health & Subst Abuse Tx Therapist Name of Therapist: None Account Administrator Name of Account Administrator: None Post Discharge Appointments Primary Care Physician Name Of Family Doctor: Dr. Roberts @ [facility] CPT Code CPT Code 55740
[2018-11-25] MEDS: QUETIAPINE FUMARATE 100 MG TABLET PO SCH (21:04)
[2018-11-25] MEDS: lamoTRIgine 25 MG TAB PO SCH (21:05)
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
[2018-11-26] MEDS ORDERED: HYDROCORTISONE 1% OINT 30 GM TUBE EXT PRN (19:39)
[2018-11-26] MEDS: QUETIAPINE FUMARATE 100 MG TABLET PO SCH (21:02)
[2018-11-26] MEDS ORDERED: lamoTRIgine 25 MG TAB PO SCH (22:00)
[2018-11-27] MEDS: QUETIAPINE FUMARATE 25 MG TABLET PO SCH (09:09)
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
[2018-11-27] MEDS ORDERED: DiphenhydrAMINE 2%/ZINC 0.1% CREAM 28GM TUBE EXT PRN (14:58)
--- NOTE | 2018-11-27 14:58 | Consultation ---
Date of Consultation November 27, 2018 Assessment & Plan (1) Rash and other nonspecific skin eruption: Erythematous, itchy, maculopapular rash on right hip DD: Neurodermatitis, medication side effects Check CBC with diff in AM Change to 2.5% hydrocortisone cream TID Benadryl PRN Consider Infectious disease evaluation if needed Lamictal tapered off Consider Systemic steroids if no improvement (understand limitation of use due to side effects) Bipolar Disorder Jossy Management as per Primary Team Please reconsult if needed or Call with any questions Thank you for the consultation History of Present Illness Requesting Physician: Patient is a 38 yr female with history of Bipolar disorder, PTSD, H/O Marijuana and other problems was admitted inpatient under psychiatric service for management of bipolar disorder, manic episode with psychosis. Patient was requested to be evaluated by mental health for management of rash. Patient developed right hip rash which she attributes to developing after having haloperidol while in ED 4 days ago. Patient states the rash is itchy and believes that it has been progressively getting worse. She was also noted to be on Lamictal for many years and had no adverse effects with its use. Currently she is being tapered off of Lamictal as per the patient. She denies any history of having chickenpox in the past. She denies any fever, chills, chest pain, SOB, dizziness, nausea, vomiting, abd pain. She admits to having some irritation of throat but denies any dysphagia/odynophagia. She also denies any other new medication use or allergies other than penicillin. She was started on hydrocortisone cream as needed yesterday. Reason for Consultation: Rash Attending Physician: Nazia Grossman MD Allergies Allergy/AdvReac Type Severity Reaction Status Date / Time Penicillins Allergy Intermediate rash Verified 09/01/18 11:28 latex Allergy Mild RASH Verified 09/01/18 11:28 Home Medications Home Medications Medication Instructions Recorded Confirmed Type lamotrigine 25 mg PO HS 11/18/18 11/23/18 History quetiapine 100 mg PO HS 11/18/18 11/23/18 History venlafaxine 150 mg PO DAILY 11/18/18 11/23/18 History Patient History Medical History Anxiety (Chronic) Palpitations (Acute) Paresthesia (Acute) Laceration of right elbow without complication (Acute) Chest pain (Acute) Anxiety (Chronic) Manic depressive disorder (Chronic) Auditory hallucination (Inactive) Post traumatic stress disorder (Inactive) Bipolar disorder Family History Other No significant family history Social History Preferred Language: Welsh Communication Ability: Effective Transfer Station Operator Required: No Beliefs That Will Affect Care: None marital status: Current Living Situation: Family Feels Safe at Home: No Smoking Status: Never smoker Tobacco Type: e-cigarettes Hx Alcohol Use: No Hx Substance Use: Yes substance use type: marijuana Review of Systems Review of Systems: All systems reviewed & are unremarkable except as noted in HPI & below Physical Exam Physical Exam: Physical Exam: Vitals signs as noted above General Appearance:Thin, no apparent distress Head: normocephalic, Atraumatic Eyes: normal inspection, EOMI Neck: supple, Trachea midline Respiratory/Chest: Normal breath sounds, CTA Cardiovascular: S1, S2, No murmur Abdomen/GI:Soft, Non tender, Bowel sounds present Extremities/Musculoskelatal:normal inspection, no edema Neurologic/Psych:AAOX3, grossly no focal neurological deficits Skin: normal color, warm, erythematous maculopapular rash on R hip. +Multiple scratch nagy noted Results & Data Vital Signs (Past 12 Hours) Vital Signs Temp Pulse Resp BP Pulse Ox 11/27/18 12:23 36.7 C 89 20 108/76 99 11/27/18 06:49 36.4 C L 90 18 136/101 H Medications Administered Current Inpatient Medications Acetaminophen (Tylenol) 650 mg PO Q4H PRN PRN Reason: Headache or Minor Fever Stop: 12/23/18 22:34 Al Hydrox/Mg Hydrox/Simethicone (Maalox) 30 ml PO Q4H PRN PRN Reason: GI Upset Stop: 12/23/18 22:34 Bismuth Subsalicylate (Kaopectate) 15 ml PO PRN PRN PRN Reason: Loose Stool Stop: 12/23/18 22:34 Diphenhydramine HCl (Benadryl Capsule) 25 mg PO Q6 PRN PRN Reason: Allergic Symptoms Stop: 12/27/18 10:16 Last Admin: 11/27/18 18:57 Dose: 25 mg Documented by: Hydrocortisone (Hydrocortisone 2.5%) 1 appln EXT TID KERRY Stop: 12/27/18 20:59 Hydroxyzine HCl (Vistaril) 50 mg PO HSZ PRN PRN Reason: Insomnia Stop: 12/23/18 22:34 Last Admin: 11/27/18 02:12 Dose: 50 mg Documented by: Hydroxyzine HCl (Vistaril) 25 mg PO Q4H PRN PRN Reason: Anxiety Stop: 12/23/18 22:34 Magnesium Hydroxide (Milk Of Magnesia) 30 ml PO DAILY PRN PRN Reason: Heartburn Stop: 12/23/18 22:34 Quetiapine Fumarate (Seroquel) 25 mg PO QAM [facility] Stop: 12/27/18 08:59 Last Admin: 11/27/18 09:09 Dose: 25 mg Documented by: Quetiapine Fumarate (Seroquel) 50 mg PO TID PRN PRN Reason: Agitation Stop: 12/23/18 22:43 Quetiapine Fumarate (Seroquel) 100 mg PO HS KERRY Stop: 12/24/18 21:59 Last Admin: 11/26/18 21:02 Dose: 100 mg Documented by: Sodium Chloride ([place] Nasal) 1 - 2 sprays NA PRN PRN PRN Reason: Nasal Dryness/Congestion Stop: 12/23/18 22:34 Zinc Acetate/Diphenhydramine (Benadryl Extra Strength) 1 appln EXT TID PRN PRN Reason: Rash Stop: 12/27/18 14:57
[2018-11-27] MEDS ORDERED: HYDROCORTISONE 1% OINT 30 GM TUBE EXT PRN (14:59)
[2018-11-27] MEDS ORDERED: predniSONE 20 MG TAB PO STA (21:57)
[2018-11-27 23:32] LABS: Basophils # (auto) 0.05 K/uL (0-0.2); Basophils % (auto) 0.8 %; Eosinophils # (auto) 0.21 K/uL (0-0.5); Eosinophils % (auto) 3.5 %; Hematocrit (blood only) 41.3 % (37-47); Hemoglobin 15.3 g/dL (12.0-16.0); Immature Granulocytes # (auto) 0.03 K/uL (0.00-0.02); Immature Granulocytes % (auto) 0.5 %; Lymphocytes # (auto) 2.13 K/uL (1.2-3.4); Lymphocytes % (auto) 35.4 %; Mean Corpuscular Volume 87.3 fL (80-100); Mean Platelet Volume 9.9 fL (7.4-10.4); Monocytes # (auto) 0.54 K/uL (0.11-0.59); Neutrophils # (auto) 3.05 K/uL (1.4-6.5); Neutrophils % (auto) 50.8 %; Platelet Count 240 K/uL (130-400); RDW Coefficient of Variation 12.6 % (11.5-14.5); RDW Standard Deviation 40.5 fL (36.4-46.3); Red Blood Count 4.73 M/uL (4.2-5.4); White Blood Count 6.01 K/uL (4.8-10.8)
[2018-11-27] MEDS: QUETIAPINE FUMARATE 100 MG TABLET PO SCH (23:39)
[2018-11-27] MEDS: HYDROCORTISONE 2.5% CR 30 GM TUBE EXT SCH (23:39)
[2018-11-27 23:48] LABS: BUN Creatinine Ratio 30.1 (10-20); Calcium 8.9 mg/dl (8.5-10.1); Creatinine Clr Calc Pharmacy 75.7 ml/min; Est GFR (African American) 127.7; Est GFR (Non-African American) 110.2; Potassium 3.7 mmol/L (3.5-5.1)
[2018-11-28] MEDS: QUETIAPINE FUMARATE 25 MG TABLET PO SCH (08:36)
[2018-11-28] MEDS: HYDROCORTISONE 2.5% CR 30 GM TUBE EXT SCH ×4 (08:37→21:07)
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
[2018-11-28] MEDS: QUETIAPINE FUMARATE 100 MG TABLET PO SCH (21:05)
[2018-11-29] MEDS: QUETIAPINE FUMARATE 25 MG TABLET PO SCH (08:48)
[2018-11-29] MEDS: HYDROCORTISONE 2.5% CR 30 GM TUBE EXT SCH ×3 (08:49→21:43)
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
[2018-11-29] MEDS ORDERED: RABIES VACC (IMOVAX) HUMAN DIPL CELL 2.5 UNITS/ML SYR IM ONE (12:30)
[2018-11-29] MEDS: QUETIAPINE FUMARATE 100 MG TABLET PO SCH (21:43)
[2018-11-29 22:35] VITALS: O2SAT 100
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
[2018-11-30] MEDS: QUETIAPINE FUMARATE 25 MG TABLET PO SCH (11:14)
[2018-11-30] MEDS: HYDROCORTISONE 2.5% CR 30 GM TUBE EXT SCH ×3 (11:15→21:40)
--- NOTE | 2018-11-30 18:23 | Communication Note ---
Date of Service: November 30, 2018 This provider completed [id number] review on Trini Granado (1980) as last covered insurance day was 11/28/18. Review was completed with Dr. Montes ([phone]) who was informed of our ongoing concern for the patient's limited progress in the inpatient setting, and recommendation that patient remain in treatment until symptoms are under better control. This provider reviewed admission presentation and ongoing concerns for patient's erratic behavior and limited insight into her condition. We reviewed patient's refusal of medication recommendations and inconsistent reports to staff regarding her symptoms. Our concern surrounding discharge was discussed, as patient is unable to maintain a conversation regarding her housing options, available outpatient supports, or how she plans to care for her children following her divorce from her . The CYS report filed by staff may also suggest findings that may further destabilize the patient. There was significant focus from reviewer on the rabies vaccines the patient has been refusing, as well as whether patient may be a candidate for an RALPH given history of non-compliance with psychotropic medications. Reviewer did verbalize agreement that the patient sounds to be at high risk of harm to herself or others, and inpatient treatment seems appropriate. Reviewer stated she was only asked to review the uncovered day of 11/29/18 - which she will recommend be covered based on patient's condition. It was reported that a separate review will need to take place to extend patient's coverage further - though she did not think this would be a problem based on description of patient's current presentation.
[2018-11-30] MEDS: QUETIAPINE FUMARATE 100 MG TABLET PO SCH (21:40)
[2018-12-01] MEDS: HYDROCORTISONE 2.5% CR 30 GM TUBE EXT SCH ×3 (10:00→21:40)
[2018-12-01] MEDS: QUETIAPINE FUMARATE 25 MG TABLET PO SCH (10:00)
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
[2018-12-01] MEDS: OLANZAPINE ZYDIS 5 MG ORALLY DIS. TAB PO SCH (21:40)
[2018-12-01] MEDS: QUETIAPINE FUMARATE 100 MG TABLET PO SCH (21:40)
[2018-12-02] MEDS: QUETIAPINE FUMARATE 25 MG TABLET PO SCH (08:09)
[2018-12-02] MEDS: HYDROCORTISONE 2.5% CR 30 GM TUBE EXT SCH (08:09)
[2018-12-02] MEDS ORDERED: HYDROCORTISONE 2.5% CR 30 GM TUBE EXT PRN (09:31)
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
[2018-12-02] MEDS: OLANZAPINE ZYDIS 5 MG ORALLY DIS. TAB PO SCH (23:00)
[2018-12-02] MEDS: QUETIAPINE FUMARATE 100 MG TABLET PO SCH (23:00)
[2018-12-03 06:45] VITALS: TEMP 97.7
[2018-12-03] MEDS ORDERED: RABIES VACC (IMOVAX) HUMAN DIPL CELL 2.5 UNITS/ML SYR IM ONE (09:00)
[2018-12-03] MEDS: QUETIAPINE FUMARATE 25 MG TABLET PO SCH (09:04)
[2018-12-03] MEDS ORDERED: OLANZAPINE ZYDIS 5 MG ORALLY DIS. TAB PO STA (13:58)
[2018-12-03 15:29] VITALS: BP 169/84; PULSE 130
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
[2018-12-10] MEDS ORDERED: RABIES VACC (IMOVAX) HUMAN DIPL CELL 2.5 UNITS/ML SYR IM ONE (09:00)
== END 2018-12-03 16:00 | disposition home or self-care (01) | DRG 885 ==
LOC: ED 12:45 → 3S 19:37